=== PATIENT | male | born 1955 | race Caucasian/White ===

== ENCOUNTER → 2017-05-01 12:17 | Outpatient (CLI) | payer SELFPAY ==
[2017-05-01 13:29] LABS: Absolute Lymphocyte Count 2.21 X10^3/ul (0.83-4.51); Absolute Neutrophil Count 6.1 X10^3/uL (2.0-7.7); Basophil# 0.05 X10^3/uL; Basophil% 0.5 % (0-1); Eosinophil# 0.34 X10^3/uL; Eosinophils% 3.6 % (0-5); Hematocrit 39.4 % (40-54); Hemoglobin 13.1 g/dl (13.0-16.5); Lymphocyte # 2.21 X10^3/ul (4.0); Lymphocyte % 23.4 % (19-41); Mean Corp Hgb Conc 33.2 g/gl (32-36); Mean Corpuscular Hgb 31.6 pg (27.0-32.0); Mean Corpuscular Volume 95.2 fL (80-94); Mean Platelet Vol. 10.3 fl (6.2-12.0); Monocyte# 0.72 X10^3/uL; Monocyte% 7.6 % (0-10); Neutrophil # 6.07 X10^3/uL (2.7-7.7); Neutrophil % 64.5 % (47-70); Platelet Count 250 K/mm3 (150-450); RBC Distribution Width CV 13.5 % (11.6-14.6); RBC Distribution Width SD 45.4 fl (35.1-43.9); Red Blood Count 4.14 M/mm3 (4.6-6.2); White Blood Count 9.4 K/mm3 (4.4-11.0)
[2017-05-01 13:30] LABS: POSITIVE COUNT NO; POSITIVE DIFFERENTIAL NO; POSITIVE MORPHOLOGY NO
[2017-05-01 13:55] LABS: ALB/GLOB Ratio 1.2 RATIO (0.9-2.4); AST(SGOT) 40 U/L (15-37); Alanine Aminotransfer ALT/SGPT 53 U/L (16-61); Albumin, Serum 3.6 g/dL (3.2-5.0); Alkaline Phosphatase 167 U/L (45-117); Anion Gap 8 (5-15); BUN 19 mg/dL (7-18); BUN/Creat Ratio 22.2 RATIO (10-20); Calcium,Total 8.6 mg/dL (8.5-10.1); Chloride 102 mmol/L (98-107); Creatinine, Serum 0.86 mg/dL (0.70-1.30); EST Glomerular Filtration Rate 96 mL/min (>60); Est Glom Filt Rate - Afr Amer 116 mL/min (>60); Globulin 3.1 g/dL (2.2-4.2); Glucose 183 mg/dL (74-106); PSA,Total - Annual Screen 0.99 ng/mL (0.00-4.00); Potassium 4.3 mmol/L (3.5-5.1); Protein, Total 6.7 g/dL (6.4-8.2); Sodium Level 137 mmol/L (136-145); Thyroid Stim Hormone (TSH) 1.14 uIU/mL (0.358-3.74)
[2017-05-02 08:36] LABS: Hep C Antibodies 0.1 s/co ratio (0.0-0.9)
== END ==
PROVIDERS: Family Provider Family Medicine Geriatric Medicine; PCP Family Medicine Geriatric Medicine; Visit Provider Family Medicine Geriatric Medicine
DX: E11.9 Type 2 diabetes mellitus without complications (principal); I10 Essential (primary) hypertension; F52.8 Other sexual dysfunction not due to a substance or known physiological condition; Z12.5 Encounter for screening for malignant neoplasm of prostate; Z13.89 Encounter for screening for other disorder
CPT/HCPCS: 36415; 80053; 84153; 84403; 84443; 85025; 86803; G0103

== ENCOUNTER → 2018-04-21 10:54 | Outpatient (CLI) | payer OTHER, SELFPAY ==
[2018-04-21 12:50] LABS: Erythrocyte Sedimentation Rate 4 mm/hr (0-20)
[2018-04-21 12:52] LABS: Hematocrit 39.2 % (40-54); Hemoglobin 12.5 g/dl (13.0-16.5); Lymphocyte % 16.4 % (19-41); Mean Corp Hgb Conc 31.9 g/gl (32-36); Mean Platelet Vol. 10.4 fl (6.2-12.0); Neutrophil % 75.5 % (47-70); Platelet Count 213 K/mm3 (150-450); RBC Distribution Width CV 13.5 % (11.6-14.6); RBC Distribution Width SD 46.5 fl (35.1-43.9); Red Blood Count 4.17 M/mm3 (4.6-6.2); White Blood Count 15.6 K/mm3 (4.4-11.0)
[2018-04-21 12:53] LABS: Absolute Lymphocyte Count 2.55 X10^3/ul (0.83-4.51); Absolute Neutrophil Count 11.8 X10^3/uL (2.0-7.7); Basophil# 0.06 X10^3/uL; Basophil% 0.4 % (0-1); Eosinophil# 0.21 X10^3/uL; Eosinophils% 1.3 % (0-5); Lymphocyte # 2.55 X10^3/ul (4.0); Monocyte# 0.97 X10^3/uL; Monocyte% 6.2 % (0-10); Neutrophil # 11.76 X10^3/uL (2.7-7.7)
[2018-04-21 13:04] LABS: POSITIVE COUNT NO; POSITIVE DIFFERENTIAL NO; POSITIVE MORPHOLOGY NO
[2018-04-21 13:07] LABS: ALB/GLOB Ratio 1.1 RATIO (0.9-2.4); AST(SGOT) 25 U/L (15-37); Alanine Aminotransfer ALT/SGPT 45 U/L (16-61); Albumin, Serum 3.9 g/dL (3.2-5.0); Alkaline Phosphatase 135 U/L (45-117); Anion Gap 5 (5-15); BUN 17 mg/dL (7-18); BUN/Creat Ratio 15.9 RATIO (10-20); Calcium,Total 8.4 mg/dL (8.5-10.1); Chloride 101 mmol/L (98-107); Creatinine, Serum 1.07 mg/dL (0.70-1.30); EST Glomerular Filtration Rate 74 mL/min (>60); Est Glom Filt Rate - Afr Amer 90 mL/min (>60); Globulin 3.6 g/dL (2.2-4.2); Glucose 177 mg/dL (74-106); Potassium 4.4 mmol/L (3.5-5.1); Protein, Total 7.5 g/dL (6.4-8.2); Sodium Level 135 mmol/L (136-145); Thyroid Stim Hormone (TSH) 3.82 uIU/mL (0.358-3.74); Uric Acid 4.2 mg/dL (3.5-7.2)
== END ==
PROVIDERS: Family Provider Family Medicine Geriatric Medicine; PCP Family Medicine Geriatric Medicine; Visit Provider Family Medicine Geriatric Medicine
DX: M10.9 Gout, unspecified (principal); R53.83 Other fatigue
CPT/HCPCS: 36415; 80053; 84443; 84550; 85025; 85652; 86141

== ENCOUNTER → 2018-04-28 11:19 | Outpatient (CLI) | payer OTHER, SELFPAY ==
[2016-10-29 14:05] VITALS: BMI 28.2
--- NOTE | 2018-04-28 11:28 | RAD_ITS ---
STUDY: X-RAY - LEFT ELBOW REASON FOR EXAM: Male, 63 years old. Pain x1 month TECHNIQUE: 3 view(s) of the elbow. COMPARISON: None. FINDINGS: Normal visualized humerus, radius and ulna. Normal radiocapitellar and ulnotrochlear articulations. The soft tissue structures are unremarkable. RAD/Elbow 2 Views IMPRESSION: Normal x-ray examination of the elbow. Electronically Signed: Josue Fitzpatrick MD at 12:07 EDT , Service support ,
--- NOTE | 2018-04-28 11:40 | RAD_ITS ---
STUDY: X-RAY - RIGHT ELBOW REASON FOR EXAM: Male, 63 years old. Pain x1 month TECHNIQUE: 3 view(s) of the elbow. COMPARISON: None. FINDINGS: Normal visualized humerus, radius and ulna. Normal radiocapitellar and ulnotrochlear articulations. The soft tissue structures are unremarkable. RAD/Elbow 2 Views IMPRESSION: Normal x-ray examination of the elbow. Electronically Signed: Josue Fitzpatrick MD at 12:06 EDT , Service support ,
== END ==
PROVIDERS: Family Provider Family Medicine Geriatric Medicine; PCP Family Medicine Geriatric Medicine; Referring Provider Family Medicine Geriatric Medicine; Visit Provider Family Medicine Geriatric Medicine
DX: M25.521 Pain in right elbow (principal); M25.522 Pain in left elbow
CPT/HCPCS: 73070

== ENCOUNTER → 2018-05-19 12:57 | Outpatient (CLI) | payer OTHER, SELFPAY ==
[2016-10-29 14:05] VITALS: BMI 28.2
--- NOTE | 2018-05-19 13:00 | RAD_ITS ---
STUDY: X-RAY - RIGHT SHOULDER REASON FOR EXAM: Male, 63 years old. Pain TECHNIQUE: 4 view(s) of the shoulder. COMPARISON: None. FINDINGS: There is moderate degenerative arthrosis of the glenohumeral articulation. There is degenerative arthrosis of the acromioclavicular joint without inferior osseous spur formation. Normal acromion. Normal humeral head and visualized proximal humerus. The soft tissue structures are unremarkable. Normal visualized pulmonary apex. RAD/Shoulder min 2 Views IMPRESSION: Degenerative arthrosis Electronically Signed: Josue Fitzpatrick MD at 13:27 EDT , Service support ,
== END ==
PROVIDERS: Family Provider Family Medicine Geriatric Medicine; PCP Family Medicine Geriatric Medicine; Referring Provider Family Medicine Geriatric Medicine; Visit Provider Family Medicine Geriatric Medicine
DX: M25.511 Pain in right shoulder (principal)
CPT/HCPCS: 73030

== ENCOUNTER → 2019-06-29 11:30 | Outpatient (CLI) | payer OTHER, SELFPAY ==
[2016-10-29 14:05] VITALS: BMI 28.2
[2019-06-29 12:44] LABS: Absolute Lymphocyte Count 2.76 X10^3/uL (0.83-4.51); Absolute Neutrophil Count 8.1 X10^3/uL (2.0-7.7); Basophil% 0.8 % (0-1); Eosinophil# 0.63 X10^3/uL; Eosinophils% 5.2 % (0-5); Hematocrit 41.1 % (40-54); Hemoglobin 12.9 g/dL (13.0-16.5); Lymphocyte # 2.76 X10^3/ul (4.0); Lymphocyte % 22.8 % (19-41); Mean Corp Hgb Conc 31.4 g/dL (32-36); Mean Corpuscular Hgb 30.5 pg (27.0-32.0); Mean Corpuscular Volume 97.2 fL (80-94); Monocyte% 4.1 % (0-10); NRBC Flagged by Analyzer 0 % (0-5); Neutrophil # 8.06 X10^3/uL (2.7-7.7); Neutrophil % 66.7 % (47-70); Platelet Count 225 K/mm3 (150-450); RBC Distribution Width CV 13.1 % (11.6-14.6); RBC Distribution Width SD 46.5 fl (35.1-43.9); Red Blood Count 4.23 M/mm3 (4.6-6.2); White Blood Count 12.1 K/mm3 (4.4-11.0)
[2019-06-29 12:55] LABS: Vitamin D,25 Hydroxy 21.2 ng/mL
[2019-06-29 13:17] LABS: ALB/GLOB Ratio 1.1 RATIO (0.9-2.4); AST(SGOT) 23 U/L (15-37); Alanine Aminotransfer ALT/SGPT 37 U/L (16-61); Albumin, Serum 3.7 g/dL (3.2-5.0); Alkaline Phosphatase 112 U/L (45-117); Anion Gap 8 (5-15); BUN 25 mg/dL (7-18); BUN/Creat Ratio 22.1 RATIO (10-20); Calcium,Total 8.6 mg/dL (8.5-10.1); Chloride 102 mmol/L (98-107); Creatinine, Serum 1.13 mg/dL (0.70-1.30); EST Glomerular Filtration Rate 69 mL/min (>60); Est Glom Filt Rate - Afr Amer 84 mL/min (>60); Globulin 3.3 g/dL (2.2-4.2); Glucose 257 mg/dL (74-106); PSA,Total - Annual Screen 1.63 ng/mL (0.00-4.00); Potassium 4.7 mmol/L (3.5-5.1); Sodium Level 135 mmol/L (136-145); Thyroid Stim Hormone (TSH) 2.74 uIU/mL (0.358-3.74); Uric Acid 5.2 mg/dL (3.5-7.2)
--- OUTSIDE RECORDS SUMMARY | 2019-11-22 14:27 | XMS RPT_ITS | CCD ---
:1955 External Reference #:[id number] Author Organization [facility] Care Team Providers Name Role Phone Jax Lakhani Primary Care Provider Medications Medication Name Sig Date Prescriber Location Albuterol albuterol 2 MG/5ML [facility] Syrup Take 2 mg by (46201) mouth 3 times daily. 0 Active Betamethasone / clotrimazole-betametha [facility] Clotrimazole sone 1-0.05 % Cream (92588) Apply topically 2 times daily. 0 Active Calcitriol Calcitriol 3 MCG/GM [facility] Ointment Apply (85123) topically. 0 Active fluticasone / Fluticasone [facility] vilanterol Furoate-Vilanterol (74576) (BREO ELLIPTA) 100-25 MCG/INH Aerosol Powder, breath activated Inhale. 0 Active insulin, isophane insulin NPH 100 Historical Provider [facility] UNIT/ML Suspension (18446) Pen-injector injection Inject under the skin 2 times daily. 0 Active levothyroxine levothyroxine [facility] (SYNTHROID) 100 MCG (08705) Tab tablet Take 200 mcg by mouth daily. 2 tablets PO once daily 0 Active valsartan valsartan (DIOVAN) 320 [facility] MG Tab Take 320 mg by (88686 ) mouth daily. 0 Active Problems Category Problem Name Status Date Location Diabetes mellitus with Hyperglycemia due to Active 08-11-2018 - [employer] [facility] complications type 1 diabetes (28736) mellitus Diabetes mellitus Type 1 diabetes Active [facility] without complication mellitus without (00 000) complication Results Result Name Value Range Unit Interpretation Flag Date Location progress on 2019-02 PROGRESS HNO ID: [id number] Normal 02-22-[address] [facility] Author: Vlad Dunn ([id number]) Service: ? Author Type: MANAGER PRODUCT DESIGN Type: Progress Notes Filed: 02/22/2019 3:21 PM Note Text: ASSESSMENT/PLAN: 1. Type 2 diabetes mellitus without retinopathy (HCC) - ICD9 : 250.00, ICD10: E11.9 (primary diagnosis) -Patient education on the importance of strict blood sugar c ontrol in order to minimize the risk of ocular complications from Diab etes Mellitus. 2. Combined form of age-related cataract, both eyes - ICD9: 366.19, ICD10: H25.813 -Not visually significant / Observe 3. Vitreous floaters of both eyes - ICD9: 379.24, ICD10: H43 .393 -Patient was given both written and verbal information on fl ashes and floaters. Patient was instructed to call the office immediat he upon noticing flashes of light, increase in floaters, or changes in vision. Vlad Mahajan, OD I have confirmed and edited as necessary the relevant ophtha lmic history, review of systems, surgical history, and ophthalmological ex amination findings as obtained by the ophthalmic technical staff. I ropre ve seen and examined RAIZA Campbell. I have discussed the examination f indings, diagnosis, and treatment options with RAIZA Campbell and/or his family. I have also reviewed and agree with the assessment and plan as stated above and agree with all its relevant components. I gave the patient the opportunity to ask questions about the findings, diagnosis, and treatment options. Vital Signs Vital Sign Description Value / Unit Date Location The following section is limited to 5 en tries per type and includes entries from the following time range: 20180811 - 3. BMI (Body Mass Index) 29.18 kg/m2 08-11-2018 [employer] [facility] ([id number]) Body weight 94.89 kg 08-11-2018 [facility] () BP Diastolic 82 mm[Hg] 08-11-2018 [facility] ( 000) BP Systolic 141 mm[Hg] 08-11-2018 [facility] () Height 180.3 cm 08-11-2018 [facility] ( 000) Pulse (Heart Rate) 72 /min 08-11-2018 [facility] (00282) Encounters Date Type Reason Provider Location 08-11-2018 - Letter encounter Provider [facility] 08-11-2018 [facility] Provider Historical Provider 08-11-2018 - Office outpatient Type 1 diabetes Ramez Castillo [facility] 08-11-2018 new 45 minutes mellitus without Endocrino logy complication Comment: Type 1 diabetes mellitus wit hout complication (Primary Dx); Type 1 diabetes mellitus wit h hyperglycemia 08-11-2018 - 08-11-2018 Patient encounter Other Other [facility] Procedures Procedure Name Date Provider Location DEVICE EVALUATION 08-11-2018 Historical Provider [facility] ([id number]) Plan of Treatment Plan Description Date Location INFLUENZA VACCINE INFLUENZA VACCINE (#1) 2018 - [facility] (#1) 10-10-2018 [facility] ([id number]) Office Visit 09/14/2018 Office Visit 09-14-2018 - [facility] Endocrinology, Diabetes 09-14-2018 Endocrin ology & Metabolism Ramez Castillo MD [address] [place] [id number] [phone] C-PEPTIDE C-PEPTIDE Lab Routine 08-11-2018 - [facility] ([id number]) Type 1 diabetes mellitus 08-12-2019 without complication Expected: 08/11/2018 (Approximate), Expires: 08/12/2019 Comment: Expected: 08/11/2018 (Approx imate), Expires: 08/12/2019 CBC,PLATELETS CBC,PLATELETS Lab [facility]ine [facility]-11-2018 [facility][id number][facility] Type 1 diabetes mellitus without complication Expected: 08/11/2018, Expires: 08/12/2019 Comment: Expected: 08/11/2018, s: 08/12/2019 COMPREHENSIVE METABOLIC COMPREHENSIVE METABOLIC 08-11-2018 - [facility] PANEL PANEL Lab Routine Type 1 08-12-2019 (48033) diabetes mellitus without complication Expected: 08/11/2018, Expires: 08/12/2019 Comment: Expected: 08/11/2018, s: 08/12/2019 HEMOGLOBIN A1C HEMOGLOBIN A1C Lab Routine 08-11-2018 - 08-12-19 20 [facility] ([id number]) Type 1 diabetes mellitus without complication Expected: 08/11/2018, Expires: 08/12/2019 Comment: Expected: 08/11/2018, s: 08/12/2019 LIPID PANEL W LIPID PANEL W CALCULATED 08-11-2018 - [facility] CALCULATED LDL LDL Lab Routine Type 1 08-12-2019 (59116) diabetes mellitus without complication Expected: 08/11/2018, Expires: 08/12/2019 Comment: Expected: 08/11/2018, s: 08/12/2019 MICROALBUMIN/CREATININE RATIO MICROALBUMIN/CREATININE RATIO 07-0 - [facility] Fluids Routine Type 1 08-12-2019 (87583) diabetes mellitus without complication Expected: 08/11/2018, Expires: 08/12/2019 Comment: Expected: 08/11/2018, s: 08/12/2019 TSH W/FT4 REFLEX TSH W/FT4 REFLEX Lab 08-11-2018 - 08-12-2019 [facility] (89362) Routine Type 1 diabetes mellitus without complication Expected: 08/11/2018, Expires: 08/12/2019 Comment: Expected: 08/11/2018, s: 08/12/2019 Office Visit 08/11/2018 Office Visit 08-11-2018 - [facility] Endocrinology, Diabetes 08-11-2018 Endocrin ology & Metabolism Ramez Castillo MD [address] [place] [phone] COLON CANCER COLON CANCER SCREENING 2005 - [facility] SCREENING DISCUSSION DISCUSSION 2005 [facility] ([id number]) PROSTATE CANCER PROSTATE CANCER 2005 - [facility] SCREENING DISCUSSION SCREENING DISCUSSION 2005 [facility] ([id number]) [facility] (SHINGLES) [facility] (SHINGLES) 2005 - [facility] Rahman EDICAL VACCINE (1 of 2) VACCINE (1 of 2) 2005 [facility] ([id number]) LIPID SCREENING LIPID SCREENING 1995 - [facility] 1995 [facility] ([id number]) TDAP (ADULT) TDAP (ADULT) 1974 - [facility] 1974 [facility] ([id number]) TETANUS TETANUS 1973 - [facility] 1973 [facility] ([id number]) HIV SCREENING HIV SCREENING DISCUSSION 02-15-1968 - [facility] 01-06-1969 [facility] ([id number]) HEPATITIS C VIRUS HEPATITIS C VIRUS 1955 - [facility] MARIA ISABEL EDICAL SCREENING SCREENING 1955 [facility] ([id number]) TSH TSH 1955 - [facility] (00 000) 1955 C-PEPTIDE C-PEPTIDE Lab Routine [facility] ([id number]) Type 1 diabetes mellitus without complication Ordered: 08/11/2018 Comment: Ordered: 08/11/2018 CBC, EDIF, PLATELET CBC, EDIF, PLATELET Lab Routine Type 1 [facility] (79168) diabetes mellitus without complication Ordered: 08/11/2018 Comment: Ordered: 08/11/2018 COMPREHENSIVE METABOLIC PANEL COMPREHENSIVE METABOLIC PANEL [facility] ([id number]) Lab Routine Type 1 diabetes mellitus without complication Ordered: 08/11/2018 Comment: Ordered: 08/11/2018 HEMOGLOBIN A1C HEMOGLOBIN A1C Lab Routine Type 1 diabetes [facility] ([id number]) mellitus without complication Ordered: 08/11/2018 Comment: Ordered: 08/11/2018 LIPID PANEL W CALCULATED LDL LIPID PANEL W CALCULATED LDL Lab [facility] ([id number]) Routine Type 1 diabetes mellitus without complication Ordered: 08/11/2018 Comment: Ordered: 08/11/2018 MICROALBUMIN/CREATININE RATIO MICROALBUMIN/CREATININE RATIO [facility] Fluids Routine Type 1 diabetes ( 36498) mellitus without complication Ordered: 08/11/2018 Comment: Ordered: 08/11/2018 TSH TSH Lab Routine Type 1 diabetes mellitus without [facility] ([id number]) complication Ordered: 08/11/2018 Comment: Ordered: 08/11/2018 Payers Payer Name Policy Number Location MULTIPLAN xxxxxxxxxx [facility] ([id number]) The following information is from the original human readable contentNo Payer Records Found Social History Type Social History Date Location Description Tobacco smoking status Unknown if ever smoked [facility] ([id number]) Sex Assigned At Not on file [facility] ([id number]) Tobacco smoking status Never smoker 08-11-2018 - [facility] ([id number]) NHIS 08-11-2018 Alcohol Comment rarely 08-11-2018 - [facility] (00 000) 08-11-2018 The following information is from the original human readable contentNo Social History Records Found History of Present Illness Ramez Castillo MD - 08/11/2018 9:15 AM EDT History of Present Illness Type 1 diabetes: This is his first visit to the office. He was diagnosed with diabetes in his 20s. Currently taking NPH and R, he has a Canelo device and is making constant adjustments to his shoulders.Blood sugars are highly variable, it does appear he has hypoglycemic unawareness with blood sugars as low as 40 mg/dL, asymptomatic. Denies neuropathic discomfort of the lower extremity. Last ophthalmology appointment one year ago, no retinopathy. Review of Systems Vitals: Blood pressure 141/82, pulse 72, height 1.803 m (5' 11), weight 94.9 kg (209 lb 3.2 oz). Physical Exam Constitutional: He is oriented to person, place, and time. No distress. HENT: Head: Normocephalic. Cardiovascular: Normal rate, regular rhythm and normal heart sounds. Exam reveals no friction rub. No murmur heard. Pulmonary/Chest: Effort normal. He has no wheezes. He has no rales. Abdominal: Soft. Neurological: He is alert and oriented to person, place, and time. Skin: Skin is warm and dry. He is not diaphoretic. Psychiatric: Judgment normal. foot exam: +2 dorsalis pedis pulses bilaterally, intact monofilament sensation bilaterally, bunion on the right great toe joint Neurologic Exam Mental Status Oriented to person, place, and time. Assessment and Plan Type 1 diabetes: We discussed carbohydrate counting. We discussed insulin pumps. We will check C-peptide level. Have asked for him to document insulin administration and sugars were may come up with stable insulin doses and carb ratios. Follow-up in 2-4 weeks for lab results and to go over logbook andLibre download. rossSherrell rdz - 08/11/2018 9:15 AM EDT Nurse Note: Review of Systems Constitutional: Positive for unexpected weight change. Negative for fatigue. Respiratory: Positive for cough and shortness of breath. Cardiovascular: Negative for chest pain, palpitations and leg swelling. Gastrointestinal: Negative for constipation, diarrhea, nausea and vomiting. Endocrine: Negative for polydipsia and polyuria. Neurological: Negative for tremors, weakness and numbness. Psychiatric/Behavioral: Positive for sleep disturbance. The patient is nervous/anxious. Nursing Assessment: Physical Exam documented in this encounter Assessments Diagnosis Type 1 diabetes mellitus without complic ation - Primary Type I (juvenile type) diabetes mellitus without mention of complication, not stated as uncontrolled Type 1 diabetes mellitus with hyperglyce jl Type I (juvenile type) diabetes mellitus without mention of complication, not stated as uncontrolled Summary Purpose Family History No Family History Records Found Advance Directives No Advanced Directives Records Found Additional Source Comments FOR RECORDS PERTAINING TO PATIENTS WHO ARE OR HAVE BEEN ENROLLED IN A CHEMICAL DEPENDENCY/SUBSTANCE ABUSE PROGRAM, SOME INFORMATION MAY BE OMITTED. This clinical summary was aggregated from multiple sources. Caution should be exercised in using it in the provision of clinical care. This summary normalizes information from multiple sources, and as a consequence, information in this document may materially changethe coding, format and clinical context of patient data. In addition, data may be omittedin some cases. CLINICAL DECISIONS SHOULD BE BASED ON THE PRIMARY CLINICAL RECORDS. [facility] provides no warranty or guarantee of the accuracy or completeness of information in this document. UNRECOGNIZED CONTENT PROVIDED BELOW FOR UNRECOGNIZED SECTION Reason for Visit Reason Comments New Patient Diabetes UNRECOGNIZED CONTENT PROVIDED BELOW FOR UNRECOGNIZED SECTION No Status Records Found UNRECOGNIZED CONTENT PROVIDED BELOW FOR UNRECOGNIZED SECTION INFORMATION SOURCE DATE CREATED AUTHOR AUTHOR'S ORGANIZATIO N 02/22/2019 [facility] marisel
== END ==
PROVIDERS: PCP Family Medicine Geriatric Medicine; Visit Provider Family Medicine Geriatric Medicine
DX: I10 Essential (primary) hypertension (principal); E55.9 Vitamin D deficiency, unspecified; M10.9 Gout, unspecified; Z12.5 Encounter for screening for malignant neoplasm of prostate
CPT/HCPCS: 36415; 80053; 82306; 84153; 84443; 84550; 85025; G0103

== ENCOUNTER 2019-07-11 07:38 | Emergency (ER) | payer OTHER, SELFPAY ==
[2019-07-11 07:40] VITALS: BP 139/75; PULSE 96; RESP 17; TEMP 36.1; O2SAT 93; BMI 26.4
[2019-07-11 07:42] VITALS: BP 139/75; PULSE 96; RESP 17; TEMP 36.1; O2SAT 93
--- NOTE | 2019-07-11 07:51 | RAD_ITS ---
STUDY: X-RAY - RIGHT HAND REASON FOR EXAM: Male, 64 years old. Right hand pain, redness and edema -- most edema around MC area, fingers are swollen too -- NKI, redness and pain started 07-06-, getting worse TECHNIQUE: 3 view(s) of the hand. COMPARISON: None. FINDINGS: Normal radiocarpal articulation. Normal distal radioulnar joint. Normal visualized carpal bones. Normal carpal articulations Normal carpometacarpal articulation of the thumb. Normal second through fifth carpometacarpal joints. Normal metacarpi. Normal metacarpophalangeal joint of the thumb. Normal interphalangeal joint of the thumb. Normal proximal and distal phalanges of the thumb. Normal metacarpophalangeal joints of the second through fifth fingers. Normal proximal and distal interphalangeal joints of the second through fifth fingers. Normal phalanges of the second through fifth fingers. Soft tissue swelling. Vascular calcification overlying the wrist joint. RAD/Hand Min 3 Views IMPRESSION: Soft tissue swelling. Vascular calcification. Electronically Signed: Piter Paz, at 8:43 EDT , Service support ,
--- NOTE | 2019-07-11 07:58 | ED.DCSUM_ITS ---
History of Present Illness Chief Complaint: Upper Extremity Injury Narrative: This patient is a 64-year-old male who presents with pain redness and swelling of his right hand. He first noticed this on Thursday, 4 days ago. He does not recall a specific injury but notes that he may have been bitten by something. He noted a small wound near his fifth digit. Since that time his redness swelling and pain have progressed. He is diabetic. No fevers nausea or vomiting. He denies any systemic complaints. Past Medical History - Allergies and Home Meds Allergies/Adverse Reactions: Allergies No Known Allergies Allergy (Verified 07/11/19 07:40) Primary Care Physician: Michael Lakhani Chi, MD [Primary Care Provider] - Past Medical History: - - Diabetes, hypertension, hypothyroidism Smoking Status: Former smoker Review of Systems All systems negative except as indicated General: Denies: Fever Eyes: Denies: Visual changes - bilaterally ENT: Denies: Bilateral ear pain Cardiovascular: Denies: Chest pain Respiratory: Denies: Dyspnea Gastrointestinal: Denies: Nausea, Vomiting Musculoskeletal: Reports: Extremity Pain Skin: Reports: Rash Neurological: Denies: Headache Allergy: Denies: Uticaria Physical Exam Vital Signs/Narrative: Vital Signs Temp Pulse Resp BP Pulse Ox 07/11/19 07:42 96.9 F L 96 17 139/75 H 93 07/11/19 07:40 96.9 F L 96 17 139/75 H 93 Inital Vital Signs reviewed: Yes General: Well nourished Head: Normocephalic Eyes: EOMI ENT: Moist mucous membranes Neck: Supple Cardiovascular: Regular rate, Regular rhythm Respiratory: No distress, CTA bilaterally Abdomen: Soft Extremities: - - Patient has erythema, warmth to the touch, significant soft tissue swelling of the right hand extending up onto the distal forearm there is no lymphangitic streaking he has brisk capillary refill no necrosis or ulceration good range of motion of the digits and wrist without significant pain no fluctuance or drainage Skin: Normal color Neurological: Alert Psychological: Normal affect Diagnostic/Tx/Re-eval Impressions Hand X-Ray 07/11/19 07:51 IMPRESSION: Soft tissue swelling. Vascular calcification. Electronically Signed: Piter Paz, at 8:43 EDT , Service support , 07/11/19 07:51 Hand Min 3 Views [RAD] Stat Laboratory Results 07/11/19 07/11/19 07:40 07:40 WBC 17.0 H RBC 4.37 L Hgb 13.2 Hct 42.5 MCV 97.3 H MCH 30.2 MCHC 31.1 L RDW Std Deviation 46.4 H RDW Coeff of Eleonora 12.8 Plt Count 216 MPV 9.9 Immature Gran % (Auto) 0.400 Neut % (Auto) 76.3 H Lymph % (Auto) 13.1 L Sampson % (Auto) 7.0 Eos % (Auto) 2.8 Baso % (Auto) 0.4 Absolute Neuts (auto) 13.0 H Absolute Lymphs (auto) 2.23 Nucleated RBC % 0 Sodium 135 L Potassium 3.6 Chloride 101 Carbon Dioxide 28.0 Anion Gap 6 BUN 15 Creatinine 1.07 Estim Creat Clear Calc 74.28 Est GFR (MDRD) Af Amer 89 Est GFR (MDRD) Non-Af 74 BUN/Creatinine Ratio 14.0 Glucose 301 H Calcium 8.6 - Medical Decision Making Patient was treated with IV Unasyn. Laboratory studies as above notable for white blood cell count 17,000. Given the extent of his cellulitis, leukocytosis, the fact he is diabetic I did recommend hospitalization for IV antibiotics. Patient refuses. We did discuss risks and benefits of hospitalization versus outpatient management including the risk of worsening of condition or sepsis should he leave AGAINST MEDICAL ADVICE. He vocalized understanding and elected to sign out AGAINST MEDICAL ADVICE. He does understand he is welcome to return and certainly should do so for any new or worsening symptoms. Additionally I spoke to his primary care physician who can reevaluate him in the office tomorrow. We will also start the patient on oral antibiotics. He was given a prescription for Augmentin. ED Disposition - Plan for ED Patient: Disposition: Home or Assisted Living Diagnosis: Cellulitis of hand Instructions: ED Cellulitis Prescriptions: Amox/Clavulanate Tablet [Augmentin Tablet] 875 mg PO Q12H #20 tab Prescription Printed Referrals: Michael Lakhani Chi, MD [Primary Care Provider] -
[2019-07-11 08:20] LABS: Absolute Lymphocyte Count 2.23 X10^3/uL (0.83-4.51); Basophil# 0.07 X10^3/uL; Basophil% 0.4 % (0-1); Eosinophil# 0.48 X10^3/uL; Eosinophils% 2.8 % (0-5); Hematocrit 42.5 % (40-54); Hemoglobin 13.2 g/dL (13.0-16.5); Lymphocyte # 2.23 X10^3/ul (4.0); Lymphocyte % 13.1 % (19-41); Mean Corp Hgb Conc 31.1 g/dL (32-36); Mean Corpuscular Hgb 30.2 pg (27.0-32.0); Mean Corpuscular Volume 97.3 fL (80-94); Mean Platelet Vol. 9.9 fl (6.2-12.0); Monocyte# 1.19 X10^3/uL; NRBC Flagged by Analyzer 0 % (0-5); Neutrophil # 13.01 X10^3/uL (2.7-7.7); Neutrophil % 76.3 % (47-70); Platelet Count 216 K/mm3 (150-450); RBC Distribution Width CV 12.8 % (11.6-14.6); RBC Distribution Width SD 46.4 fl (35.1-43.9); Red Blood Count 4.37 M/mm3 (4.6-6.2)
[2019-07-11 08:34] LABS: Anion Gap 6 (5-15); BUN 15 mg/dL (7-18); Calcium,Total 8.6 mg/dL (8.5-10.1); Chloride 101 mmol/L (98-107); Creatinine, Serum 1.07 mg/dL (0.70-1.30); EST Glomerular Filtration Rate 74 mL/min (>60); Est Glom Filt Rate - Afr Amer 89 mL/min (>60); Estimated Creatinine Clearance 74.28 ml/min; Glucose 301 mg/dL (74-106); Potassium 3.6 mmol/L (3.5-5.1); Sodium Level 135 mmol/L (136-145)
[2019-07-11 08:41] VITALS: BP 147/73; PULSE 66; RESP 16; TEMP 36.5; O2SAT 95
--- OUTSIDE RECORDS SUMMARY | 2019-11-27 05:32 | XMS RPT_ITS | CCD ---
:1955 External Reference #:[id number] Author Organization [employer] Care Team Providers Name Role Phone Jax Lakhani Primary Care Provider Medications Medication Name Sig Date Prescriber Location Albuterol albuterol 2 MG/5ML [facility] Syrup Take 2 mg by (07849) mouth 3 times daily. 0 Active Betamethasone / clotrimazole-betametha [facility] Clotrimazole sone 1-0.05 % Cream (89913) Apply topically 2 times daily. 0 Active Calcitriol Calcitriol 3 MCG/GM [facility] Ointment Apply (46943) topically. 0 Active fluticasone / Fluticasone [facility] vilanterol Furoate-Vilanterol (72386) (BREO ELLIPTA) 100-25 MCG/INH Aerosol Powder, breath activated Inhale. 0 Active insulin, isophane insulin NPH 100 Historical Provider [facility] UNIT/ML Suspension (52375) Pen-injector injection Inject under the skin 2 times daily. 0 Active levothyroxine levothyroxine [facility] (SYNTHROID) 100 MCG (60091) Tab tablet Take 200 mcg by mouth daily. 2 tablets PO once daily 0 Active valsartan valsartan (DIOVAN) 320 [facility] MG Tab Take 320 mg by (05445 ) mouth daily. 0 Active Problems Category Problem Name Status Date Location Diabetes mellitus with Hyperglycemia due to Active 08-11-2018 - [facility] complications type 1 diabetes (16175) mellitus Diabetes mellitus Type 1 diabetes Active [facility] without complication mellitus without (00 000) complication Results Result Name Value Range Unit Interpretation Flag Date Location progress on 2019-02 PROGRESS HNO ID: [id number] Normal 02-22-2019 [facility] Author: Vlad Dunn ([id number]) Service: ? Author Type: CLAIMS VICE PRESIDENT Type: Progress Notes Filed: 02/22/2019 3:21 PM [...] obtained by the ophthalmic technical staff. I roper ve seen and examined RAIZA Campbell. I [...] BMI (Body Mass Index) 29.18 kg/m2 08-11-2018 [facility] ([id number]) Body weight 94.89 kg 08-11-2018 [facility] () BP Diastolic 82 mm[Hg] 08-11-2018 [facility] ( 000) BP Systolic 141 mm[Hg] 08-11-2018 [facility] () Height 180.3 cm 08-11-2018 [facility] ( 000) Pulse (Heart Rate) 72 /min 08-11-2018 [facility] (62775) Encounters Date Type Reason Provider Location 08-11-2018 - Letter encounter Provider [facility] 08-11-2018 [facility] Provider Historical Provider 08-11-2018 - Office outpatient Type 1 diabetes Ramez Castillo [facility] 08-11-2018 new 45 minutes mellitus without Endocrino logy complication Comment: Type 1 diabetes mellitus wit hout complication (Primary Dx); Type 1 diabetes mellitus wit h hyperglycemia 08-11-2018 - 08-11-2018 Patient encounter Other Other [facility] Procedures Procedure Name Date Provider Location DEVICE EVALUATION 08-11-2018 Historical Provider [facility] ([id number]) Plan of Treatment Plan Description Date Location INFLUENZA VACCINE INFLUENZA VACCINE (#1) 2018 - [facility] (#1) 10-10-2018 [facility] ([id number]) Office Visit 09/14/2018 Office Visit 09-14-2018 - [facility] Endocrinology, Diabetes 09-14-2018 Endocrin ology & Metabolism Ramez Castillo MD [address] [place] [address] [phone] C-PEPTIDE C-PEPTIDE Lab Routine 08-11-2018 - [facility] ([id number]) Type 1 diabetes mellitus 08-12-2019 without complication Expected: 08/11/2018 (Approximate), Expires: 08/12/2019 Comment: Expected: 08/11/2018 (Approx imate), Expires: 08/12/2019 CBC,PLATELETS CBC,PLATELETS Lab Routine 08-11-2018 [facility] (89130[facility] Type 1 diabetes mellitus without complication Expected: 08/11/2018, Expires: 08/12/2019 Comment: Expected: 08/11/2018, s: 08/12/2019 COMPREHENSIVE METABOLIC COMPREHENSIVE METABOLIC 08-11-2018 - [facility] PANEL PANEL Lab Routine Type 1 08-12-2019 (13371) diabetes mellitus without complication Expected: 08/11/2018, Expires: 08/12/2019 Comment: Expected: 08/11/2018, s: 08/12/2019 HEMOGLOBIN A1C HEMOGLOBIN A1C Lab Routine 08-11-2018 - 08-12-19 20 [facility] (73948) Type 1 diabetes mellitus without complication Expected: 08/11/2018, Expires: 08/12/2019 Comment: Expected: 08/11/2018, s: 08/12/2019 LIPID PANEL W LIPID PANEL W CALCULATED 08-11-2018 - [facility] CALCULATED LDL LDL Lab Routine Type 1 08-12-2019 (28013) diabetes mellitus without complication Expected: 08/11/2018, Expires: 08/12/2019 Comment: Expected: 08/11/2018, s: 08/12/2019 MICROALBUMIN/CREATININE RATIO MICROALBUMIN/CREATININE RATIO 07-0 - [facility] Fluids Routine Type 1 08-12-2019 (60254) diabetes mellitus without complication Expected: 08/11/2018, Expires: 08/12/2019 Comment: Expected: 08/11/2018, s: 08/12/2019 TSH W/FT4 REFLEX TSH W/FT4 REFLEX Lab 08-11-2018 - 08-12-2019 [facility] (81231) Routine Type 1 diabetes mellitus without complication Expected: 08/11/2018, Expires: 08/12/2019 Comment: Expected: 08/11/2018, s: 08/12/2019 Office Visit 08/11/2018 Office Visit 08-11-2018 - [facility], Diabetes 08-11-2018 Endocrin ology & Metabolism Ramez Castillo MD [address] [place] [address] [phone] COLON CANCER COLON CANCER SCREENING 2005 - [facility] MEDICAL SCREENING DISCUSSION DISCUSSION 2005 [facility] [place] (432 10) PROSTATE CANCER PROSTATE CANCER 2005 - [facility] SCREENING DISCUSSION SCREENING DISCUSSION 2005 [facility] [place] (32997) ZOSTER (SHINGLES) ZOSTER (SHINGLES) 2005 - [facility] Rahman EDICAL VACCINE (1 of 2) VACCINE (1 of 2) 2005 [facility] [place] (54832) LIPID SCREENING LIPID SCREENING 1995 - [facility] 1995 [place] (21389) TDAP (ADULT) TDAP (ADULT) 1974 - [facility] 1974 [facility] [place] (62256) TETANUS TETANUS 1973 - [facility] 1973 [place] [place] (54614) HIV SCREENING HIV SCREENING DISCUSSION 02-15-1968 - [facility] 01-06-1969 [facility] ([id number]) HEPATITIS C VIRUS HEPATITIS C VIRUS 1955 - [facility] MARIA ISABEL EDICAL SCREENING SCREENING 1955 [facility] ([id number]) TSH TSH 1955 - [facility] (00 000) 1955 C-PEPTIDE C-PEPTIDE Lab Routine [facility] (80773) Type 1 diabetes mellitus without complication Ordered: 08/11/2018 Comment: Ordered: 08/11/2018 CBC, EDIF, PLATELET CBC, EDIF, PLATELET Lab Routine Type 1 [facility] (07464) diabetes mellitus without complication Ordered: 08/11/2018 Comment: Ordered: 08/11/2018 COMPREHENSIVE METABOLIC PANEL COMPREHENSIVE METABOLIC PANEL [facility] (71633) Lab Routine Type 1 diabetes mellitus without complication Ordered: 08/11/2018 Comment: Ordered: 08/11/2018 HEMOGLOBIN A1C HEMOGLOBIN A1C Lab Routine Type [address] [facility] (69564) mellitus without complication Ordered: 08/11/2018 Comment: Ordered: 08/11/2018 LIPID PANEL W CALCULATED LDL LIPID PANEL W CALCULATED LDL Lab [facility] (27254) Routine Type 1 diabetes mellitus without complication Ordered: 08/11/2018 Comment: Ordered: 08/11/2018 MICROALBUMIN/CREATININE RATIO MICROALB[facility]IN[facility]INE RATIO [facility] Flu[facility] Routine Type 1 diabetes ( 03595) mellitus without complication Ordered: 08/11/2018 Comment: Ordered: 08/11/2018 TSH TSH Lab Routine Type 1 diabetes mellitus without [facility] (59824) complication Ordered: 08/11/2018 Comment: Ordered: 08/11/2018 Payers Payer Name Policy Number Location MULTIPLAN xxxxxxxxxx [facility] ([id number]) The following information is from the original human readable contentNo Payer Records Found Social History Type Social History Date Location Description Tobacco smoking status Unknown if ever smoked [facility] ([id number]) Sex Assigned At Not on file [facility] ([id number]) Tobacco smoking status Never smoker 08-11-2018 [facility] (36909) NHIS 08-11-2018 Alcohol Comment rarely 08-11-2018 - [facility] (00 000) 08-11-2018 The following information [...] BE BASED ON THE PRIMARY CLINICAL RECORDS. [facility] provides no warranty or guarantee of the accuracy or completeness of information in this document. UNRECOGNIZED CONTENT PROVIDED BELOW FOR UNRECOGNIZED SECTION Reason for Visit Reason Comments New Patient Diabetes UNRECOGNIZED CONTENT PROVIDED BELOW FOR UNRECOGNIZED SECTION No Status Records Found UNRECOGNIZED CONTENT PROVIDED BELOW FOR UNRECOGNIZED SECTION INFORMATION SOURCE DATE CREATED AUTHOR AUTHOR'S ORGANIZATIO N 02/22/2019 [facility] marisel
--- OUTSIDE RECORDS SUMMARY | 2019-11-27 05:35 | XMS RPT_ITS | CCD ---
:1955 External Reference #:[id number] Author Organization [employer] Care Team Providers Name Role Phone Jax Lakhani Primary Care Provider Medications Medication Name Sig Date Prescriber Location Albuterol albuterol 2 MG/5ML [facility] Syrup Take 2 mg by (29763) mouth 3 times daily. 0 Active Betamethasone / clotrimazole-betametha [facility] Clotrimazole sone 1-0.05 % Cream (90060) Apply topically 2 times daily. 0 Active Calcitriol Calcitriol 3 MCG/GM [facility] Ointment Apply (72163) topically. 0 Active fluticasone / Fluticasone [facility] vilanterol Furoate-Vilanterol (75407) (BREO ELLIPTA) 100-25 MCG/INH Aerosol Powder, breath activated Inhale. 0 Active insulin, isophane insulin NPH 100 Historical Provider [facility] UNIT/ML Suspension (44906) Pen-injector injection Inject under the skin 2 times daily. 0 Active levothyroxine levothyroxine [facility] (SYNTHROID) 100 MCG (43945) Tab tablet Take 200 mcg by mouth daily. 2 tablets PO once daily 0 Active valsartan valsartan (DIOVAN) 320 [facility] MG Tab Take 320 mg by (55107 ) mouth daily. 0 Active Problems Category Problem Name Status Date Location Diabetes mellitus with Hyperglycemia due to Active 08-11-2018 - [facility] complications type 1 diabetes (82875) mellitus Diabetes mellitus Type 1 diabetes Active [facility] without complication mellitus without (00 000) complication Results Result Name Value Range Unit Interpretation Flag Date Location progress on 2019-02 PROGRESS HNO ID: [id number] Normal 02-22-2019 [facility] Author: Vlad Dunn ([id number]) Service: ? Author Type: RIBBON CLEANER Type: Progress Notes Filed: 02/22/2019 3:21 PM [...] BMI (Body Mass Index) 29.18 kg/m2 08-11-2018 [facility] (54332) Body weight 94.89 kg 08-11-2018 [facility] () BP Diastolic 82 mm[Hg] 08-11-2018 [facility] ( 000) BP Systolic 141 mm[Hg] 08-11-2018 [facility] () Height 180.3 cm 08-11-2018 [facility] ( 000) Pulse (Heart Rate) 72 /min 08-11-2018 [facility] (19413) Encounters Date Type Reason Provider Location 08-11-2018 - Letter encounter Provider [facility] 08-11-2018 [facility] Provider Historical Provider 08-11-2018 - Office outpatient Type 1 diabetes Ramez Castillo [facility] 08-11-2018 new 45 minutes mellitus without Endocrino logy complication Comment: Type 1 diabetes mellitus wit hout complication (Primary Dx); Type 1 diabetes mellitus wit h hyperglycemia 08-11-2018 - 08-11-2018 Patient encounter Other Other [facility] Procedures Procedure Name Date Provider Location DEVICE EVALUATION 08-11-2018 Historical Provider [facility] ([id number]) Plan of Treatment Plan Description Date Location INFLUENZA VACCINE INFLUENZA VACCINE (#1) 2018 - [facility] (#1) 10-10-2018 [facility] ([id number]) Office Visit 09/14/2018 Office Visit 09-14-2018 - [facility] Endocrinology, Diabetes 09-14-2018 Endocrin ology & Metabolism Ramez Castillo MD [address] [place] [address] [phone] C-PEPTIDE C-PEPTIDE Lab Routine 08-11-2018 - [facility] ([id number]) Type 1 diabetes mellitus 08-12-2019 without complication Expected: 08/11/2018 (Approximate), Expires: 08/12/2019 Comment: Expected: 08/11/2018 (Approx imate), Expires: 08/12/2019 CBC,PLATELETS CBC,PLATELETS Lab Routine 08-11-2018 - [facility] (63317[facility] Type 1 diabetes mellitus without complication Expected: 08/11/2018, Expires: 08/12/2019 Comment: Expected: 08/11/2018, s: 08/12/2019 COMPREHENSIVE METABOLIC COMPREHENSIVE METABOLIC 08-11-2018 - [facility] PANEL PANEL Lab Routine Type 1 08-12-2019 (63132) diabetes mellitus without complication Expected: 08/11/2018, Expires: 08/12/2019 Comment: Expected: 08/11/2018, s: 08/12/2019 HEMOGLOBIN A1C HEMOGLOBIN A1C Lab Routine 08-11-2018 - 08-12-19 20 [facility] (21520) Type 1 diabetes mellitus without complication Expected: 08/11/2018, Expires: 08/12/2019 Comment: Expected: 08/11/2018, s: 08/12/2019 LIPID PANEL W LIPID PANEL W CALCULATED 08-11-2018 - [facility] CALCULATED LDL LDL Lab Routine Type 1 08-12-2019 (17329) diabetes mellitus without complication Expected: 08/11/2018, Expires: 08/12/2019 Comment: Expected: 08/11/2018, s: 08/12/2019 MICROALBUMIN/CREATININE RATIO MICROALBUMIN/CREATININE RATIO 07-0 - [facility] Fluids Routine Type 1 08-12-2019 (49974) diabetes mellitus without complication Expected: 08/11/2018, Expires: 08/12/2019 Comment: Expected: 08/11/2018, s: 08/12/2019 TSH W/FT4 REFLEX TSH W/FT4 REFLEX Lab 08-11-2018 - 08-12-2019 [facility] (63934) Routine Type 1 diabetes mellitus without complication Expected: 08/11/2018, Expires: 08/12/2019 Comment: Expected: 08/11/2018, s: 08/12/2019 Office Visit 08/11/2018 Office Visit 08-11-2018 - [facility] Endocrin[facility], Diabetes 08-11-2018 Endocrin ology & Metabolism Ramez Castillo MD [address] [place] [address] [phone] COLON CANCER COLON CANCER SCREENING 2005 - [facility] MEDICAL SCREENING DISCUSSION DISCUSSION 2005 [place] (432 10) PROSTATE CANCER PROSTATE CANCER 2005 - [facility] SCREENING DISCUSSION SCREENING DISCUSSION 2005 [facility] (73250) ZOSTER (SHINGLES) ZOSTER (SHINGLES) 2005 - [facility]man EDICAL VACCINE (1 of 2) VACCINE (1 of 2) 2005 [place] (37821) LIPID SCREENING LIPID SCREENING 1995 - [facility] 1995 [place] (63918) TDAP (ADULT) TDAP (ADULT) 1974 - [facility] 1974 [place] (32176) TETANUS TETANUS 1973 - [facility] 1973 [place] (52177) HIV SCREENING HIV SCREENING DISCUSSION 02-15-1968 - [facility] DIS[facility] 01-06-1969 [facility] (06172) HEPATITIS C VIRUS HEPATITIS C VIRUS 1955 - [facility] MARIA ISABEL EDICAL SCREENING SCREENING 1955 [facility] (38322) TSH TSH 1955 - [facility] (00 000) 1955 C-PEPTIDE C-PEPTIDE Lab Routine [facility] (06224) Type 1 diabetes mellitus without complication Ordered: 08/11/2018 Comment: Ordered: 08/11/2018 CBC, EDIF, PLATELET CBC, EDIF, PLATELET Lab Routine Type 1 [facility] (45200) diabetes mellitus without complication Ordered: 08/11/2018 Comment: Ordered: 08/11/2018 COMPREHENSIVE METABOLIC PANEL COMPREHENSIVE METABOLIC PANEL [facility] (50230) Lab Routine Type 1 diabetes mellitus without complication Ordered: 08/11/2018 Comment: Ordered: 08/11/2018 HEMOGLOBIN A1C HEMOGLOBIN A1C Lab Routine Type 1 diabetes [facility] (16364) mellitus without complication Ordered: 08/11/2018 Comment: Ordered: 08/11/2018 LIPID PANEL W CALCULATED LDL LIPID PANEL W CALCULATED LDL Lab [facility] (88502) Routine Type 1 diabetes mellitus without complication Ordered: 08/11/2018 Comment: Ordered: 08/11/2018 MICROALBUMIN/CREATININE RATIO MICROALB[facility]IN[facility]INE [facility]IO [facility] Fluids Routine Type 1 diabetes ( 73045) mellitus without complication Ordered: 08/11/2018 Comment: Ordered: 08/11/2018 TSH TSH Lab Routine Type 1 diabetes mellitus [facility] (11098) complication Ordered: 08/11/2018 Comment: Ordered: 08/11/2018 Payers Payer Name Policy Number Location MULTIPLAN xxxxxxxxxx [facility] ([id number]) The following information is from the original human readable contentNo Payer Records Found Social History Type Social History Date Location Description Tobacco smoking status Unknown if ever smoked [facility] (87942) Sex Assigned At Not on file [facility] (51021) Tobacco smoking status Never [facility]oker [facility]-11-2018 [facility] (31247[facility] NHIS 08-11-2018 Alcohol Comment rarely 08-11-2018 - [facility] (00 000) 08-11-2018 The following information [...] BE BASED ON THE PRIMARY CLINICAL RECORDS. [facility] provides no warranty or guarantee of the accuracy or completeness of information in this document. UNRECOGNIZED CONTENT PROVIDED BELOW FOR UNRECOGNIZED SECTION Reason for Visit Reason Comments New Patient Diabetes UNRECOGNIZED CONTENT PROVIDED BELOW FOR UNRECOGNIZED SECTION No Status Records Found UNRECOGNIZED CONTENT PROVIDED BELOW FOR UNRECOGNIZED SECTION INFORMATION SOURCE DATE CREATED AUTHOR AUTHOR'S ORGANIZATIO N 02/22/2019 [facility] marisel
== END 2019-07-11 09:51 | disposition home or self-care (01) ==
PROVIDERS: Emergency Provider Emergency Medicine; PCP Family Medicine Geriatric Medicine
DX: L03.113 Cellulitis of right upper limb (principal); I10 Essential (primary) hypertension; E11.9 Type 2 diabetes mellitus without complications; E03.9 Hypothyroidism, unspecified; Z79.4 Long term (current) use of insulin; Z79.899 Other long term (current) drug therapy; Z87.891 Personal history of nicotine dependence; Z53.29 Procedure and treatment not carried out because of patient's decision for other reasons
CPT/HCPCS: 73130; 80048; 85025; 96365; 96366; 99283; J7050; A4216; J0295

== ENCOUNTER → 2020-03-28 11:21 | Outpatient (CLI) | payer OTHER, SELFPAY ==
[2020-03-28 12:58] LABS: Absolute Lymphocyte Count 2.97 X10^3/uL (0.83-4.51); Absolute Neutrophil Count 7.1 X10^3/uL (2.0-7.7); Basophil# 0.12 X10^3/uL; Basophil% 1.1 % (0-1); Eosinophil# 0.36 X10^3/uL; Eosinophils% 3.2 % (0-5); Hematocrit 43.3 % (40-54); Hemoglobin 13.5 g/dL (13.0-16.5); Lymphocyte # 2.97 X10^3/ul (4.0); Lymphocyte % 26.7 % (19-41); Mean Corp Hgb Conc 31.2 g/dL (32-36); Mean Corpuscular Hgb 30.3 pg (27.0-32.0); Mean Corpuscular Volume 97.1 fL (80-94); Mean Platelet Vol. 9.8 fl (6.2-12.0); Monocyte# 0.56 X10^3/uL; NRBC Flagged by Analyzer 0 % (0-5); Neutrophil # 7.05 X10^3/uL (2.7-7.7); Neutrophil % 63.5 % (47-70); Platelet Count 271 K/mm3 (150-450); RBC Distribution Width CV 13.2 % (11.6-14.6); RBC Distribution Width SD 46.8 fl (35.1-43.9); Red Blood Count 4.46 M/mm3 (4.6-6.2); White Blood Count 11.1 K/mm3 (4.4-11.0)
[2020-03-28 13:46] LABS: ALB/GLOB Ratio 1.2 RATIO (0.9-2.4); AST(SGOT) 25 U/L (15-37); Alanine Aminotransfer ALT/SGPT 43 U/L (16-61); Albumin, Serum 4.1 g/dL (3.2-5.0); Alkaline Phosphatase 104 U/L (45-117); Anion Gap 6 (5-15); BUN 29 mg/dL (7-18); Calcium,Total 8.7 mg/dL (8.5-10.1); Chloride 102 mmol/L (98-107); Creatinine, Serum 0.97 mg/dL (0.70-1.30); EST Glomerular Filtration Rate 83 mL/min (>60); Est Glom Filt Rate - Afr Amer 100 mL/min (>60); Globulin 3.3 g/dL (2.2-4.2); Glucose 141 mg/dL (74-106); Protein, Total 7.4 g/dL (6.4-8.2); Sodium Level 135 mmol/L (136-145); Thyroid Stim Hormone (TSH) 2.64 uIU/mL (0.358-3.74)
[2020-03-28 14:56] LABS: Vitamin D,25 Hydroxy 14.7 ng/mL
== END ==
PROVIDERS: PCP Family Medicine Geriatric Medicine; Visit Provider Family Medicine Geriatric Medicine
DX: E11.9 Type 2 diabetes mellitus without complications (principal); E55.9 Vitamin D deficiency, unspecified; F52.8 Other sexual dysfunction not due to a substance or known physiological condition; I10 Essential (primary) hypertension
CPT/HCPCS: 36415; 80053; 82306; 84403; 84443; 85025

== ENCOUNTER → 2020-07-30 13:45 | Outpatient (CLI) | payer MEDICARE, SELFPAY ==
[2020-07-30 17:18] LABS: Absolute Lymphocyte Count 2.42 X10^3/uL (0.83-4.51); Absolute Neutrophil Count 6.8 X10^3/uL (2.0-7.7); Basophil# 0.08 X10^3/uL; Basophil% 0.8 % (0-1); Eosinophil# 0.61 X10^3/uL; Eosinophils% 5.8 % (0-5); Hematocrit 39.8 % (40-54); Hemoglobin 12.5 g/dL (13.0-16.5); Lymphocyte # 2.42 X10^3/ul (0.83-4.51); Mean Corp Hgb Conc 31.4 g/dL (32-36); Mean Corpuscular Hgb 30.9 pg (27.0-32.0); Mean Corpuscular Volume 98.3 fL (80-94); Mean Platelet Vol. 10.4 fl (6.2-12.0); Monocyte# 0.55 X10^3/uL; Monocyte% 5.2 % (0-10); NRBC Flagged by Analyzer 0 % (0-5); Neutrophil # 6.82 X10^3/uL (2.7-7.7); Neutrophil % 64.8 % (47-70); Platelet Count 226 K/mm3 (150-450); RBC Distribution Width CV 13.1 % (11.6-14.6); RBC Distribution Width SD 46.6 fl (35.1-43.9); Red Blood Count 4.05 M/mm3 (4.6-6.2); White Blood Count 10.5 K/mm3 (4.4-11.0)
[2020-07-30 17:32] LABS: ALB/GLOB Ratio 1.1 RATIO (0.9-2.4); AST(SGOT) 26 U/L (15-37); Alanine Aminotransfer ALT/SGPT 43 U/L (16-61); Albumin, Serum 3.5 g/dL (3.2-5.0); Alkaline Phosphatase 131 U/L (45-117); Anion Gap 8 (5-15); BUN 17 mg/dL (7-18); BUN/Creat Ratio 15.9 RATIO (10-20); Calcium,Total 8.1 mg/dL (8.5-10.1); Chloride 105 mmol/L (98-107); Creatinine, Serum 1.07 mg/dL (0.70-1.30); EST Glomerular Filtration Rate 74 mL/min (>60); Est Glom Filt Rate - Afr Amer 89 mL/min (>60); Globulin 3.1 g/dL (2.2-4.2); Glucose 218 mg/dL (74-106); Potassium 3.9 mmol/L (3.5-5.1); Protein, Total 6.6 g/dL (6.4-8.2); Sodium Level 139 mmol/L (136-145); Thyroid Stim Hormone (TSH) 0.95 uIU/mL (0.358-3.74)
== END ==
PROVIDERS: PCP Family Medicine Geriatric Medicine; Visit Provider Family Medicine Geriatric Medicine
DX: E11.9 Type 2 diabetes mellitus without complications (principal); F52.8 Other sexual dysfunction not due to a substance or known physiological condition; I10 Essential (primary) hypertension; Z12.5 Encounter for screening for malignant neoplasm of prostate
CPT/HCPCS: 36415; 80053; 84153; 84403; 84443; 85025; G0103

== ENCOUNTER 2021-03-04 15:30 | Outpatient (CLI) | payer MEDICARE, OTHER, SELFPAY ==
[2021-03-04 16:46] LABS: Absolute Lymphocyte Count 2.37 X10^3/uL (0.83-4.51); Absolute Neutrophil Count 5.9 X10^3/uL (2.0-7.7); Basophil# 0.08 X10^3/uL; Basophil% 0.8 % (0-1); Eosinophil# 0.65 X10^3/uL; Eosinophils% 6.8 % (0-5); Hematocrit 39.7 % (40-54); Hemoglobin 12.9 g/dL (13.0-16.5); Lymphocyte # 2.37 X10^3/ul (0.83-4.51); Lymphocyte % 24.7 % (19-41); Mean Corp Hgb Conc 32.5 g/dL (32-36); Mean Corpuscular Hgb 29.7 pg (27.0-32.0); Mean Corpuscular Volume 91.5 fL (80-94); Monocyte# 0.52 X10^3/uL; Monocyte% 5.4 % (0-10); NRBC Flagged by Analyzer 0 % (0-5); Neutrophil # 5.94 X10^3/uL (2.7-7.7); Platelet Count 245 K/mm3 (150-450); RBC Distribution Width CV 14.2 % (11.6-14.6); RBC Distribution Width SD 47.7 fl (35.1-43.9); Red Blood Count 4.34 M/mm3 (4.6-6.2); White Blood Count 9.6 K/mm3 (4.4-11.0)
[2021-03-04 17:28] LABS: AST(SGOT) 36 U/L (15-37); Alanine Aminotransfer ALT/SGPT 61 U/L (16-61); Albumin, Serum 3.7 g/dL (3.2-5.0); Alkaline Phosphatase 103 U/L (45-117); Anion Gap 5 (5-15); BUN 16 mg/dL (7-18); Calcium,Total 8.7 mg/dL (8.5-10.1); Chloride 105 mmol/L (98-107); Creatinine, Serum 0.89 mg/dL (0.70-1.30); EST Glomerular Filtration Rate 91 mL/min (>60); Est Glom Filt Rate - Afr Amer 110 mL/min (>60); Globulin 3.6 g/dL (2.2-4.2); Glucose 108 mg/dL (74-106); Potassium 3.8 mmol/L (3.5-5.1); Protein, Total 7.3 g/dL (6.4-8.2); Sodium Level 138 mmol/L (136-145)
== END 2021-03-04 23:59 | disposition short-term general hospital (02) ==
LOC: POLAB3 15:32
PROVIDERS: PCP Family Medicine Geriatric Medicine; Visit Provider Family Medicine Geriatric Medicine
DX: E11.9 Type 2 diabetes mellitus without complications (principal); F52.8 Other sexual dysfunction not due to a substance or known physiological condition; I10 Essential (primary) hypertension
CPT/HCPCS: 36415; 80053; 84403; 84443; 85025

== ENCOUNTER → 2021-06-20 | Outpatient (CLI) | payer MEDICARE, SELFPAY ==
[2021-06-20 17:26] LABS: Anion Gap 6 (5-15); BUN 22 mg/dL (7-18); BUN/Creat Ratio 20.2 RATIO (10-20); Calcium,Total 8.8 mg/dL (8.5-10.1); Chloride 105 mmol/L (98-107); Creatinine, Serum 1.09 mg/dL (0.70-1.30); EST Glomerular Filtration Rate 72 mL/min (>60); Est Glom Filt Rate - Afr Amer 87 mL/min (>60); Glucose 176 mg/dL (74-106); Potassium 4.4 mmol/L (3.5-5.1); Sodium Level 135 mmol/L (136-145); Uric Acid 3.5 mg/dL (3.5-7.2)
[2021-06-20 17:50] LABS: Absolute Lymphocyte Count 2.21 X10^3/uL (0.83-4.51); Absolute Neutrophil Count 7.8 X10^3/uL (2.0-7.7); Basophil# 0.07 X10^3/uL; Basophil% 0.6 % (0-1); Eosinophil# 0.14 X10^3/uL; Eosinophils% 1.3 % (0-5); Hematocrit 33.3 % (40-54); Lymphocyte # 2.21 X10^3/ul (0.83-4.51); Lymphocyte % 19.8 % (19-41); Mean Corpuscular Hgb 31.4 pg (27.0-32.0); Mean Corpuscular Volume 95.1 fL (80-94); Mean Platelet Vol. 9.6 fl (6.2-12.0); Monocyte# 0.84 X10^3/uL; Monocyte% 7.5 % (0-10); NRBC Flagged by Analyzer 0 % (0-5); Neutrophil # 7.79 X10^3/uL (2.7-7.7); Neutrophil % 69.6 % (47-70); Platelet Count 293 K/mm3 (150-450); RBC Distribution Width CV 13.9 % (11.6-14.6); RBC Distribution Width SD 47.7 fl (35.1-43.9); White Blood Count 11.2 K/mm3 (4.4-11.0)
[2021-06-20 17:57] LABS: Erythrocyte Sedimentation Rate 14 mm/hr (0-20)
== END | disposition home or self-care (01) ==
LOC: POLAB3 16:40
PROVIDERS: PCP Family Medicine Geriatric Medicine; Visit Provider Family Medicine Geriatric Medicine
DX: M10.9 Gout, unspecified (principal); M25.529 Pain in unspecified elbow
CPT/HCPCS: 36415; 80048; 84550; 85025; 85652; 86140; 87070; 87075; 87077; 87186; 87205

== ENCOUNTER → 2022-02-17 | Outpatient (CLI) | payer MEDICARE, OTHER, SELFPAY ==
[2022-02-17 17:51] LABS: Absolute Lymphocyte Count 2.97 X10^3/uL (0.83-4.51); Absolute Neutrophil Count 5.5 X10^3/uL (2.0-7.7); Basophil% 1.1 % (0-1); Eosinophil# 0.33 X10^3/uL; Eosinophils% 3.5 % (0-5); Hematocrit 36.9 % (40-54); Hemoglobin 11.8 g/dL (13.0-16.5); Lymphocyte # 2.97 X10^3/ul (0.83-4.51); Lymphocyte % 31.3 % (19-41); Mean Corpuscular Hgb 30.4 pg (27.0-32.0); Mean Corpuscular Volume 95.1 fL (80-94); Mean Platelet Vol. 10.3 fl (6.2-12.0); Monocyte# 0.59 X10^3/uL; Monocyte% 6.2 % (0-10); NRBC Flagged by Analyzer 0 % (0-5); Neutrophil # 5.47 X10^3/uL (2.7-7.7); Neutrophil % 57.5 % (47-70); Platelet Count 262 K/mm3 (150-450); RBC Distribution Width SD 52.2 fl (35.1-43.9); Red Blood Count 3.88 M/mm3 (4.6-6.2); White Blood Count 9.5 K/mm3 (4.4-11.0)
[2022-02-17 18:13] LABS: ALB/GLOB Ratio 1.3 RATIO (0.9-2.4); AST(SGOT) 28 U/L (15-37); Alanine Aminotransfer ALT/SGPT 43 U/L (16-61); Albumin, Serum 3.8 g/dL (3.2-5.0); Alkaline Phosphatase 139 U/L (45-117); Anion Gap 8 (5-15); BUN 15 mg/dL (7-18); BUN/Creat Ratio 17.5 RATIO (10-20); Calcium,Total 8.6 mg/dL (8.5-10.1); Chloride 106 mmol/L (98-107); Creatinine, Serum 0.86 mg/dL (0.70-1.30); EST Glomerular Filtration Rate 95 mL/min (>60); Est Glom Filt Rate - Afr Amer 115 mL/min (>60); Glucose 168 mg/dL (74-106); Potassium 4.2 mmol/L (3.5-5.1); Protein, Total 6.8 g/dL (6.4-8.2); Sodium Level 140 mmol/L (136-145); Vitamin D,25 Hydroxy 20.6 ng/mL
== END | disposition home or self-care (01) ==
LOC: POLAB3 14:31
PROVIDERS: PCP Family Medicine Geriatric Medicine; Visit Provider Family Medicine Geriatric Medicine
DX: E11.9 Type 2 diabetes mellitus without complications (principal); I10 Essential (primary) hypertension; E55.9 Vitamin D deficiency, unspecified
CPT/HCPCS: 36415; 80053; 82306; 84443; 85025

== ENCOUNTER → 2023-02-23 | Outpatient (CLI) | payer MEDICARE, OTHER, SELFPAY ==
--- OUTSIDE RECORDS SUMMARY | 2023-02-23 09:42 | XMS RPT_ITS | CCD ---
Author Name Unknown Address [address] [place] [address] Organization [facility] Care Team Providers Care Driver Name Role Phone Jax Lakhani Primary Care Provider AARON MEJIA Attending Unava ilSTEVEN Peoples [facility] Unavailable Kar MARIE, Steven Mack Primary Care Provider [phone] Jax Lakhani Unavailable Steven Lakhani Chi Primary Care Provider [phone] Allergies Allergy Classification Reported Allergen(s) Allergy Type Date of Onset Reaction(s) Facility (1 source) Wheat gluten extract Drug Allergy 09-14-2018 [facility] Medications Current Medications Medication Drug Class(es) Dates Sig (Normalized) Sig (Original) benoxinate hydrochloride 4 mg/ml / fluorescein sodium 2.5 mg/ml ophthalmic solution (1 source) Diagnostic Dye Start: 03-03-2022 End: 03-04-2022 fluorescein-benoxi marylou 0.25-0.4 % 1 Drop (FLURESS) Continuous Blood Gluc National Opelint Analyst (FREESTYLE CANELO 14 DAY READER) Device (1 source) Start: 06-17-2018 Continuous Blood Gluc National Opelint Analyst (FREESTYLE CANELO 14 DAY READER) Device Continuous Blood Gluc Sensor (FREESTYLE CANELO 14 DAY SENSOR) Misc (1 source) Start: 08-14-2018 Continuous Blood Gluc Sensor (FREESTYLE CANELO 14 DAY SENSOR) Misc As directed. 11 08/14/2018 Active phenylephrine hydrochloride 25 mg/ml ophthalmic solution (1 source) alpha-1 Adrenergic Agonist Start: 03-03-2022 End: 03-04-2022 PHENYLephrine 2.5 % 1 Drop (AK-DILATE, YANET-SYNEPHRINE) proparacaine hydrochloride 5 mg/ml ophthalmic solution (1 source) Local Anesthetic Start: 03-03-2022 End: 03-04-2022 proparacaine 0.5 % 1 Drop (ALCAINE) tropicamide 10 mg/ml ophthalmic solution (1 source) Anticholinergic Start: 03-03-2022 End: 03-04-2022 tropicamide 1 % 1 Drop (MYDRIACYL) Completed/Discontinued Medications Medication Drug Class(es) Dates Sig (Normalized) Sig (Original) albuterol 0.83 mg/ml inhalation solution (16 sources) beta2-Adrenergic Agonist Start: 09-02-2014 albuterol (PROVENTIL) 2.5 mg /3 mL (0.083 %) nebulizer solution Use 2.5 mg via nebulizer as needed. 0 09/02/2014 Active Problems Active Problems Problem Classification Problem Date Documented Da te Episodic/Chronic Asthma (5 sources) Asthma; Translations: [Asthma, unspecified type, unspecified] Chronic Cataract (4 sources) Nuclear sclerosis; Translations: [Age-related nuclear cataract, bilateral] Onset: 7 Chronic Chronic obstructive pulmonary disease and bronchiectasis (1 source) Mild chronic obstructive pulmonary disease; Translations: [Chronic airway obstruction, not elsewhere classified] Chronic Diabetes mellitus with complications (7 sources) Hyperglycemia due to type 1 diabetes mellitus; Translations: [Type 2 diabetes mellitus] Onset: 5 08-11-2018 Chronic Diabetes mellitus without complication (10 sources) Type 1 diabetes mellitus without complication; Translations: [Type 2 diabetes mellitus] Onset: 5 09-14-2018 Chronic Disorders of lipid metabolism (5 sources) Hyperlipidemia; Translations: [Other and unspecified hyperlipidemia] Chronic Essential hypertension (7 sources) Hypertensive disorder; Translations: [Unspecified essential hypertension] Onset: 7 Chronic Nutritional deficiencies (5 sources) Cobalamin deficiency; Translations: [Other B-complex deficiencies] Episodic Other eye disorders (1 source) Bilateral vitreous floaters; Translations: [Other vitreous opacities, bilateral] Onset: 5 09-11-2014 Chronic Other gastrointestinal disorders (5 sources) H/O: gastrointestinal disease; Translations: [Personal history of other diseases of digestive system] Episodic Other lower respiratory disease (5 sources) Hypoxemia; Translations: [Hypoxemia] Episodic Other lower respiratory disease (5 sources) Dyspnea on exertion; Translations: [Other respiratory abnormalities] Episodic Other male genital disorders (5 sources) Male erectile dysfunction, unspecified; Translations: [Erectile dysfunction] Chronic Retinal detachments; defects; vascular occlusion; and retinopathy (2 sources) Bilateral epiretinal membrane of eyes; Translations: [Puckering of macula, bilateral] Onset: 1 Chronic Thyroid disorders (7 sources) Hypothyroidism; Translations: [Unspecified acquired hypothyroidism] Onset: 9 09-14-2018 Chronic Past or Other Problems Problem Classification Problem Date Documented Da te Episodic/Chronic Blindness and vision defects (1 source) Subjective visual disturbance; Translations: [Unspecified subjective visual disturbances] Onset: 03-25-2016 03-25-2016 Episodic Results Test Name Value Interpretation Reference Range Facil ity Vital Signs Date Time Vital Sign Value Performing Clinician Faci lity 09-05-2021 08:06-0400 Body height 180.34 cm [employer] Work Phone: [facility] 400 DO Work Phone: 09-05-2021 08:06-0400 Body mass index (BMI) [Ratio] 28.54 kg/m2 [employer] Work Phone: [facility] 400 DO Work Phone: 09-05-2021 08:06-0400 Body surface area Derived from formula 2.13 m2 [employer] Work Phone: [facility] 400 DO Work Phone: 09-05-2021 08:06-0400 Body temperature 97.7 [degF] [employer] Work Phone: [facility] 400 DO Work Phone: 09-05-2021 08:06-0400 Body weight 92.81 kg [employer] Work Phone: [facility] 400 DO Work Phone: 09-05-2021 08:06-0400 Diastolic blood pressure 72 mm[Hg] [employer] Work Phone: [facility] 400 DO Work Phone: 09-05-2021 08:06-0400 Heart rate 78 /min Steven-Chi Kar Work Phone: [facility] 400 DO Work Phone: 09-05-2021 08:06-0400 SaO2% (BldA) [Mass fraction] 95 % Steven-Chi Kar Work Phone: [facility] 400 DO Work Phone: 09-05-2021 08:06-0400 Systolic blood pressure 132 mm[Hg] Steven-Chi Kar Work Phone: [facility] 400 DO Work Phone: 08-16-2021 08:12-0400 Body height 180.34 cm Steven-Chi Kar Work Phone: [facility] 400 DO Work Phone: 08-16-2021 08:12-0400 Body mass index (BMI) [Ratio] 28.45 kg/m2 Steven-Chi Kar Work Phone: [facility] 400 DO Work Phone: 08-16-2021 08:12-0400 Body surface area Derived from formula 2.13 m2 Steven-Chi Kar Work Phone: [facility] 400 DO Work Phone: 08-16-2021 08:12-0400 Body temperature 98.7 [degF] Steven-Chi Kar Work Phone: [facility] 400 DO Work Phone: 08-16-2021 08:12-0400 Body weight 92.53 kg Steven-Chi Kar Work Phone: [facility] 400 DO Work Phone: 08-16-2021 08:12-0400 Diastolic blood pressure 80 mm[Hg] Steven-Chi Kar Work Phone: [facility] 400 DO Work Phone: 08-16-2021 08:12-0400 Heart rate 84 /min Steven-Chi Kar Work Phone: [facility] 400 DO Work Phone: 08-16-2021 08:12-0400 SaO2% (BldA) [Mass fraction] 96 % Steven-Chi Kar Work Phone: [facility] [place] [address] DO Work Phone: 08-16-2021 08:12-0400 Systolic blood pressure 146 mm[Hg] Steven-Chi Kar Work Phone: [facility] [place] [address] DO Work Phone: 09-14-2018 08:14-0400 BMI (Body Mass Index) 27.4 kg/m2 [place] [employer] [facility] 09-14-2018 08:14-0400 Body weight 89.09 kg Ramez [employer] [facility] 09-14-2018 08:14-0400 BP Diastolic 72 mm[Hg] Ramez [employer] 09-14-2018 08:14-0400 BP Systolic 143 mm[Hg] Ramez [employer] [facility] 09-14-2018 08:14-0400 Height 180.3 cm Ramez [employer] 09-14-2018 08:14-0400 Pulse (Heart Rate) 76 /min Ramez [employer] [facility] 08-11-2018 09:00-0400 BMI (Body Mass Index) 29.18 kg/m2 Ramez [employer] [facility] 08-11-2018 09:00-0400 Body weight 94.89 kg Ramez [employer] 08-11-2018 09:00-0400 BP Diastolic 82 mm[Hg] Ramez [employer] 08-11-2018 09:00-0400 BP Systolic 141 mm[Hg] Ramez [employer] 08-11-2018 09:00-0400 Height 180.3 cm Ramez [employer] 08-11-2018 09:00-0400 Pulse (Heart Rate) 72 /min [facility] En[facility] Encounter Date Encounter Type Care Provider Facility Start: 03-03-2022 End: 03-03-2022 Patient encounter procedure Dick Ace MD Work Phone: Ophthalmology Procedures Date Procedure Procedure Detail Performing Clinician Start: 03-03-2022 Fundus photography w/interpretation & report Dick Ace MD Work Phone: Start: 08-11-2018 DEVICE EVALUATION Histo rical Provider No history of surgery Cher Lakhani Work Phone: Plan of Treatment Date Care Activity Detail Author Start: 03-03-2023 Hepatitis C antibody, confirmatory test DILATED RETINAL EXAM [facility] Start: 02-09-2022 ADVANCE DIRECTIVE DISCUSSION ADVANCE DIRECTIVE DISCUSSION [facility] Start: 02-09-2022 DEPRESSION ASSESSMENT DEPRESSION ASSESSMENT [facility] Start: 10-10-2021 Influenza vaccination INFLUENZA (#1) [facility] Start: 09-05-2021 FUV, Provider: Tod Christie, Status: Pen, Time: 8:00 AM FUV, Provider: Tod Christie, Status: Pen, Time: 8:00 AM -Pulmonary [facility] 400 DO Work Phone: Start: 08-29-2021 PFT, Provider: [facility],[id number], Status: Pen, Time: 10:00 AM PFT, Provider: [facility],[id number], Status: Pen, Time: 10:00 AM [facility] 400 DO Work Phone: Start: 10-10-2018 Influenza vaccination INFLUENZA VACCINE (#1) [facility] Start: 09-14-2018 End: 09-14-2018 Office Visit 09/14/2018 Office Visit Endocrinology, Diabetes & Metabolism Ramez Castillo MD [address] [place] [address] [phone] [facility] Endocrinology Start: 08-11-2018 End: 08-12-2019 C-PEPTIDE C-PEPTIDE Lab Routine Type 1 diabetes mellitus without complication Expected: 08/11/2018 (Approximate), Expires: 08/12/2019 [facility] Immunizations Immunization Date Immunization Notes Care Provider Chung zimmerman 01-30-2020 influenza virus vaccine, unspecified formulation Jax Lakhani Work Phone: [facility] [address] DO Work Phone: Payers Date Payer Category Payer Private Health Insurance [id number] 2020 Medicare [id number] 2020 Private Health Insurance [id number] 2018 Unknown [facility] xxxxxxxxxx 2018-Present xxxxxxxxxx [id number] 1955 Unknown [id number] Unknown Social History Date Type Detail Facility Tobacco smoking status [facility] Unknown if ever smoked [facility] Start: 1955 Sex Assigned At Not on file O [facility] Start: 09-11-2014 End: 08-11-2018 Tobacco smoking status NHIS Never smoker [facility] Start: 08-11-2018 Alcohol Comment rarely [facility] Tobacco smoking status [facility] Tobacco smoking consumption unknown [facility] Work Phone: Never smoker Never smoker [facility] 400 DO Work Phone: Start: 09-11-2014 Tobacco use and exposure Smokeless tobacco non-user [facility] Start: 03-03-2022 Alcohol intake Current non-dr hand zipper trimmer of alcohol (finding) [facility] Instructions 03-03-2022 Patient Instructions Note Date & Type Note Facility 03-03-2022 Instructions Dick Ace MD - 03/03/2022 4:18 PM EST Please keep your blood sugar under good control to minimize risk of ocular complications from diabetes. If you have any questions please contact our office at [phone]. After office hours or on the weekend, please call Dr. Ace on his cell phone at [phone]. documented in this encounter [facility] History of Present illness Narrative 03-03-2022 Dick Ace MD - 03/03/2022 4:15 PM EST Note Date & Type Note Facility 03-03-2022 History of Presen t illness Narrative ASSESSMENT/PLAN: 1. Epiretinal membrane (ERM) of both eyes - ICD9: 362.56, ICD10: H35.373 (primary diagnosis) - Stable / Observe - Monitor with Amsler Grid 2. Type 2 diabetes mellitus with right eye affected by mild nonproliferative retinopathy without macular edema, without long-term current use of insulin (HCC) - ICD9: 250.50, 362.04, ICD10: E11.3291 - Please keep your blood sugar under good control to minimize risk of ocular complications from diabetes. 3. Nuclear sclerosis of both eyes - ICD9: 366.16, ICD10: H25.13 - Not visually significant at this time - Continue to monitor for any progression - Consult Dr. Morrison for refraction and glasses 4. Essential hypertension - ICD9: 401.9, ICD10: I10 - Manage care with primary care physician Return to clinic in 1 year for Dilated fundus exam I have confirmed and edited as necessary the relevant ophthalmic history, review of systems, surgical history, and ophthalmological examination findings as obtained by the ophthalmic technical staff. I have seen and examined Carline Campbell. I have discussed the examination findings, diagnosis, and treatment options with Carline Campbell and/or his family. I have also reviewed and agree with the assessment and plan as stated above and agree with all its relevant components. I gave the patient the opportunity to ask questions about the findings, diagnosis, and treatment options. Dick Ace MD documented in this encounter [facility] History of Present illness Narrative 08-29-2021 Note Date & Type Note Facility 08-29-2021 History of Present illness Narrative Patient was seen today in the office to review his chest x-ray and test results. Chest x-ray from 08/29/2021 appears to be clear. His pulmonary function study shows only some small airway obstructive disease. His laboratory work shows that he is anemic and as he reminded me he is on treatment for pernicious anemia and he also had an elevated white blood cell count and I am not clear as to whether this is related to the steroid injections that he gets every few months. From what he tells me it appears that he is not on any bronchodilator therapy at this time. He has used Trelegy 200 in the past when he got samples from his family physician. I did tell him that in view of the mild obstructive airway changes that it would be probably better for him to be 90 less potent bronchodilator therapy and potentially 1 that would be easier for him to afford when he is not able to get samples. I had suggested Symbicort or Dulera.He currently denies any cough or sputum production and has not had any wheezing. He does have some shortness of breath on occasion when walking a longer distance. Additionally his FeNO was normal. He did okay on his SST and was able to walk 1400 feet in 6 minutes with a normal of 1800. His oxygen saturations remained greater than 90% on that study. -[facility] [address] DO Work Phone: History of Present illness Narrative 07-24-2021 Ivana Campbell CNP - 07/24/2021 2:56 PM EDTCoswaldo Campbell CNP - 07/24/2021 2:55 PM EDT Note Date & Type Note Facility 07-24-2021 History of Presen t illness Narrative Opened in error Opened in error documented in this encounter [facility] Progress note 02-26-2021 Note Date & Type Note Facility 02-26-2021 Note HNO ID: [id number] Author: Dick Ace MD Service: ? Author Type: Physician Type: Progress Notes Filed: 02/26/2021 4:26 PM Note Text: ASSESSMENT/PLAN: 1. Type 2 diabetes mellitus with both eyes affected by mild nonproliferative retinopathy without macular edema, with long-term current use of insulin (HCC) - ICD9: 250.50, 362.04, V58.67, ICD10: E11.3293, Z79.4 (primary diagnosis) Please keep your blood sugar under good control to minimize risk of ocular complications from diabetes. Continue to monitor with primary care physician. 2. Epiretinal membrane (ERM) of both eyes - ICD9: 362.56, ICD10: H35.373 - FUNDUS PHOTOS OU (BOTH EYES) - OCT MACULA CIRRUS OU (BOTH EYES) Monitor for progression Both Eyes. 3. Combined forms of age-related cataract of both eyes - ICD9: 366.19, ICD10: H25.813 Not visually significant Both Eyes. 4. Essential hypertension - ICD9: 401.9, ICD10: I10 Continue to monitor with primary care physician. Dick Ace MD I have confirmed and edited as necessary the relevant ophthalmic history, review of systems, surgical history, and ophthalmological examination findings as obtained by the ophthalmic technical staff. I have seen and examined Carline Campbell. I have discussed the examination findings, diagnosis, and treatment options with Carline Campbell and/or his family. I have also reviewed and agree with the assessment and plan as stated above and agree with all its relevant components. I gave the patient the opportunity to ask questions about the findings, diagnosis, and treatment options. [facility] Chief complaint Narrative - Reported Note Date & Type Note Facility Chief complaint Narrative - Reported CARLINE CAMPBELL is here for an initial evaluation.Reason for Visit: Asthma.Appointment requested by: Dr. Jax Lakhani. [facility] [place] [address] DO Work Phone: Chief complaint Narrative - Reported Note Date & Type Note Facility Chief complaint Narrative - Reported CARLINE CAMPBELL is here for an initial evaluation.Reason for Visit: Asthma.Appointment requested by: Dr. Jax Lakhani. [place] [address] DO Work Phone: Evaluation note Note Date & Type Note Facility documented in this encounter [facility] History of Present illness Narrative Note Date & Type Note Facility History of Present illness Narrative This is a 66-year-old male who reports being diagnosed with asthma when he was 40 years old. He reports that uses oxygen at nighttime only and no oxygen during the day he owns his own oxygen concentrator. He reports that he is given steroid injections about every 3 months when his oxygen saturation is at 90% or below. He has never been hospitalized for his breathing he denies any recent chest x-ray no pulmonary function testing recently no history of pneumonia or trauma to the chest. Reports on average day he has some shortness of breath. He is on Trelegy 200 that he uses samples from his family physician he also occasionally uses other inhalers if those are not available.History of hypertension. He also has nebulized albuterol treatments that he will occasionally use. He denies any past surgical history. Family history mother is living at 92 years old with some shortness of breath. Father from stomach cancer and his brother also has a history of shortness of breath none of these were smokers. 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 He is to a current smoker. Patient sleep history was unremarkable. Peak flow today was 410 L/min with an oxygen saturation of 96%. Peak flow would be approximately 550 based on his height and age. -[facility] [address] [employer] Work Phone: History of Present illness Narrative Note Date & Type Note Facility History of Present illness Narrative This is a 66-year-old male who reports being diagnosed with asthma when he was 40 years old. He reports that uses oxygen at nighttime only and no oxygen during the day he owns his own oxygen concentrator. He reports that he is given steroid injections about every 3 months when his oxygen saturation is at 90% or below. He has never been hospitalized for his breathing he denies any recent chest x-ray no pulmonary function testing recently no history of pneumonia or trauma to the chest. Reports on average day he has some shortness of breath. He is on Trelegy 200 that he uses samples from his family physician he also occasionally uses other inhalers if those are not available.History of hypertension. He also has nebulized albuterol treatments that he will occasionally use. He denies any past surgical history. Family history mother is living at 92 years old with some shortness of breath. Father from stomach cancer and his brother also has a history of shortness of breath none of these were smokers. 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 He is to a current smoker. Patient sleep history was unremarkable. Peak flow today was 410 L/min with an oxygen saturation of 96%. Peak flow would be approximately 550 based on his height and age. [facility] [address] DO Work Phone: History of Present Illness * Ramez Castillo MD - 08/11/2018 9:15 AM EDT History of Present Illness Type 1 diabetes: This is his first visit to the office. He was diagnosed with diabetes in his 20s. Currently taking NPH and R, he has a Canelo device and is making constant adjustments to his shoulders. Blood sugars are highly variable, it does appear he has hypoglycemic unawareness with blood sugars as low as 40 mg/dL, asymptomatic. Denies neuropathic discomfort of the lower extremity. Last ophthalmology appointment one year ago, no retinopathy. Review of Systems Vitals: Blood pressure 141/82, pulse 72, height 1.803 m (5' 11 ), weight 94.9 kg (209 lb 3.2 oz). [...] lab results and to go over logbook and Canelo download. * Sherrell Sanchez - 08/11/2018 9:15 AM EDT Nurse Note: [...] Nursing Assessment: Physical Exam documented in this encounter* Ramez Castillo MD - 09/14/2018 8:15 AM EDT History of Present Illness Type 1 diabetes: This is his second visit to the office. He is seen today in the presence of his daughter, who is taking notes for him. He was diagnosed with diabetes in his 20s. Currently taking NPHand R, he has a Canelo device and is making constant adjustments to his sugars. He is essentially takingbetween 10 15 units of R the high stress day, 5 units of R meals on low stress days, and barely ever using NPH, occasionally 5, no more then 10 units at bedtime. Blood sugars are highly variable, it does appear he has hypoglycemic unawareness with blood sugars as low as 40 mg/dL, asymptomatic. Denies neuropathic discomfort of the lower extremity. Last ophthalmology appointment one year ago, noretinopathy. We sent him for blood work demonstrating hemoglobin A1c = 6.8%, with blood sugars varying between 40 400 mg/dL. C-peptide undetectable for concurrent blood glucose of 117 mg/dL. Hypothyroidism: He is taking Synthroid brand 200 g daily, TSH = 1.7. Review of Systems Vitals: Blood pressure 143/72, pulse 76, height 1.803 m (5' 10.98 ), weight 89.1 kg (196 lb 6.4 oz). Physical Exam Constitutional: He is oriented [...] time. Assessment and Plan Type 1 diabetes: He is interested in a hybrid insulin pump. We will research this possibility for him. Of hybrid pump is not available, he is interested in Omni. After that, insulin pens. We discussed his hypoglycemic unawareness. He is testing blood sugars very frequently with his Canelo device. * Anne Marie Baker - 09/14/2018 8:15 AM EDT Nurse Note: Review of Systems Constitutional: Negative for fatigue, fever and unexpected weight change. Respiratory: Negative for shortness of breath. Cardiovascular: Negative for chest pain and leg swelling. Gastrointestinal: Negative for constipation, diarrhea, nausea and vomiting. Endocrine: Negative for polydipsia and polyuria. Neurological: Negative for weakness and numbness. Psychiatric/Behavioral: Negative for sleep disturbance. Nursing Assessment: Physical Exam Patient concerned about a lump under left arm. Wonders if it may be lymph nodes. Sugars are not normal D/T stress at home. documented in this encounter Assessments Diagnosis Type 1 diabetes mellitus without complication- Primary Type I (juvenile type) diabetes mellitus without mention of complication, not stated as uncontrolled Type 1 diabetes mellitus with hyperglycemia Type I (juvenile type) diabetes mellitus without mention of complication, not stated as uncontrolled Diagnosis Type 1 diabetes mellitus without complication- Primary Type I (juvenile type) diabetes mellitus without mention of complication, not stated as uncontrolled Other specified hypothyroidism Summary Purpose Family History Unknown Family Member Name Dates Details No pertinent family history: Mother, Father(V49.89, Z78.9) Status:Active Unknown Family Member Name Dates Details No pertinent family history: Mother, Father(V49.89, Z78.9) Status:Active Unknown Family Member Name Dates Details No pertinent family history: Mother, Father(V49.89, Z78.9) Status:Active Unknown Family Member Name Dates Details No pertinent family history: Mother, Father(V49.89, Z78.9) Status:Active Unknown Family Member Name Dates Details No pertinent family history: Mother, Father(V49.89, Z78.9) Status:Active Advance Directives No Advanced Directives Records FoundNo Advanced Directives Records FoundNo Advanced Directives Records FoundNo Advanced Directives Records FoundNo Advanced Directives Records Found Chief Complaint * CARLINE CAMPBELL is here for a follow-up visit. * Reason for Visit: Lab, CXR, PFT, FENO, SST. * Appointment requested by: Hiral Lakhani. Medications Administered Section Active Administered Medications - up to 3 most recent administrations Medication Order MAR Action Action Date Dose Rate Site fluorescein-benoxinate 0.25-0.4 % 1 Drop (FLURESS) 1 Drop, BOTH EYES, DIRECTED, Starting on Thu03/03/22 at 1600, Until Thu03/04/22 at 0359, Administer for applanation tonometry. In the event of a Fluress shortage, administer Jodee-Fluor 1 drop into both eyes as directed for applanation tonometry Given 03/03/2022 3:35 PM EST 1 Drop PHENYLephrine 2.5 % 1 Drop (AK-DILATE, YANET-SYNEPHRINE) 1 Drop, BOTH EYES, DIRECTED, Starting on Thu03/03/22 at 1600, Until Thu03/04/22 at 0359, Administer for dilation PROTECT FROM LIGHT Given 03/03/2022 3:32 PM EST 1 Drop proparacaine 0.5 % 1 Drop (ALCAINE) 1 Drop, BOTH EYES, DIRECTED, Starting on Thu03/03/22 at 1600, Until Thu03/04/22 at 0359, Administer for pneumo tonometry, tonopen tonometry, or pachymetry. In the event of a proparacaine shortage, administer tetracaine 0.5% ophthalmic drops 1 drop in the left eye as directed for pneumo tonometry, tonopen tonometry, or pachymetry Given 03/03/2022 3:32 PM EST 1 Drop tropicamide 1 % 1 Drop (MYDRIACYL) 1 Drop, BOTH EYES, DIRECTED, Starting on 03/03/22 at 1600, Until Tu03/04/22 at 0359, Administer for dilation Given 03/03/2022 3:32 PM EST 1 Drop Additional Source Comments Reason for Visit (unrecogniz ed section and content) Reason Comments Type 1 Diabetes Reason Comments Diabetes Last HgbA1c on recor d was 6.8 Mild Nonproliferative Diabetic Retinopat hy Bilateral Epiretinal Membrane Follow Up Bilateral (unrecognized sect ion and content) No Status Records FoundNo Status Records FoundNo Status Records FoundNo Status Records FoundNo Status Records Found INFORMATION SOURCE (unrecogn ized section and content) DATE CREATED AUTHOR AUTHOR'S ORGANIZ ATION 07/11/2021 [facility] DATE CREATED AUTHOR AUTHOR'S ORGANIZ ATION 09/02/2021 [facility] DATE CREATED AUTHOR AUTHOR'S ORGANIZ ATION 09/08/2021 [facility] DATE CREATED AUTHOR AUTHOR'S ORGANIZ ATION 09/09/2021 [employer] (unrecognized sec tion and content) Driver Relationship Specialty Start Date End Date Kar Steven Mack PCP - General Family Medicine 12/17/09 Source Comments (unrecognize d section and content) In the event this informatio n is protected by the Federal Confidentiality of Alcohol and Drug Abuse Patient Records regulations: The Federal rules restrict any use of the information to criminally investigate or prosecute any alcohol or drug abuse patient.[facility] FOR RECORDS PERTAINING TO PATIENTS WHO ARE OR HAVE BEEN ENROLLED IN A CHEMICAL DEPENDENCY/SUBSTANCEABUSE PROGRAM, SOME INFORMATION MAY BE OMITTED. This clinical summary was aggregated from multiple sources. Caution should be exercised in using it in the provision of clinical care. This summary normalizes information from multiple sources, and as a consequence, information in this document may materially change the coding, format and clinical context of patient data. In addition, data may be omitted in some cases. CLINICAL DECISIONS SHOULD BE BASED ON THE PRIMARY CLINICAL RECORDS. [facility]. provides no warranty or guarantee of the accuracy or completeness of information in this document.
[2023-02-23 09:58] LABS: Absolute Lymphocyte Count 3.31 X10^3/uL (0.83-4.51); Absolute Neutrophil Count 7.1 X10^3/uL (2.0-7.7); Basophil# 0.07 X10^3/uL; Basophil% 0.6 % (0-1); Eosinophil# 0.21 X10^3/uL; Eosinophils% 1.8 % (0-5); Hematocrit 39.9 % (40-54); Lymphocyte # 3.31 X10^3/ul (0.83-4.51); Lymphocyte % 28.8 % (19-41); Mean Corp Hgb Conc 32.6 g/dL (32-36); Mean Corpuscular Volume 95.2 fL (80-94); Mean Platelet Vol. 9.5 fl (6.2-12.0); Monocyte# 0.71 X10^3/uL; Monocyte% 6.2 % (0-10); NRBC Flagged by Analyzer 0 % (0-5); Neutrophil # 7.13 X10^3/uL (2.7-7.7); Neutrophil % 62.1 % (47-70); Platelet Count 253 K/mm3 (150-450); RBC Distribution Width CV 13.8 % (11.6-14.6); RBC Distribution Width SD 48.5 fl (35.1-43.9); Red Blood Count 4.19 M/mm3 (4.6-6.2); White Blood Count 11.5 K/mm3 (4.4-11.0)
[2023-02-23 10:11] LABS: Vitamin D,25 Hydroxy 20.4 ng/mL
[2023-02-23 12:16] LABS: ALB/GLOB Ratio 1.1 RATIO (0.9-2.4); AST(SGOT) 29 U/L (15-37); Alanine Aminotransfer ALT/SGPT 54 U/L (16-61); Albumin, Serum 3.5 g/dL (3.2-5.0); Alkaline Phosphatase 127 U/L (45-117); Anion Gap 6 (5-15); BUN 19 mg/dL (7-18); Calcium,Total 8.5 mg/dL (8.5-10.1); Chloride 107 mmol/L (98-107); Creatinine, Serum 1.12 mg/dL (0.70-1.30); EST Glomerular Filtration Rate 69 mL/min (>60); Est Glom Filt Rate - Afr Amer 84 mL/min (>60); Globulin 3.2 g/dL (2.2-4.2); Glucose 169 mg/dL (74-106); PSA,Total - Annual Screen 0.85 ng/mL (0.00-4.00); Potassium 4.4 mmol/L (3.5-5.1); Protein, Total 6.7 g/dL (6.4-8.2); Sodium Level 138 mmol/L (136-145)
== END | disposition home or self-care (01) ==
LOC: POLAB3 09:14
PROVIDERS: PCP Family Medicine Geriatric Medicine; Visit Provider Family Medicine Geriatric Medicine
DX: E11.65 Type 2 diabetes mellitus with hyperglycemia (principal); E55.9 Vitamin D deficiency, unspecified; I10 Essential (primary) hypertension; Z12.5 Encounter for screening for malignant neoplasm of prostate
CPT/HCPCS: 36415; 80053; 82306; 84153; 84443; 85025; G0103

== ENCOUNTER → 2024-02-26 | Outpatient (CLI) | payer MEDICARE, OTHER, SELFPAY ==
[2024-02-26 09:30] LABS: Absolute Lymphocyte Count 3.57 X10^3/uL (0.83-4.51); Absolute Neutrophil Count 6.5 X10^3/uL (2.0-7.7); Basophil# 0.09 X10^3/uL; Basophil% 0.8 % (0-1); Eosinophil# 0.27 X10^3/uL; Eosinophils% 2.5 % (0-5); Hematocrit 40.7 % (40-54); Hemoglobin 12.9 g/dL (13.0-16.5); Lymphocyte # 3.57 X10^3/ul (0.83-4.51); Lymphocyte % 32.5 % (19-41); Mean Corp Hgb Conc 31.7 g/dL (32-36); Mean Corpuscular Hgb 30.5 pg (27.0-32.0); Mean Corpuscular Volume 96.2 fL (80-94); Mean Platelet Vol. 9.5 fl (6.2-12.0); Monocyte# 0.52 X10^3/uL; Monocyte% 4.7 % (0-10); NRBC Flagged by Analyzer 0 % (0-5); Neutrophil # 6.51 X10^3/uL (2.7-7.7); Neutrophil % 59.1 % (47-70); Platelet Count 246 K/mm3 (150-450); RBC Distribution Width CV 13.9 % (11.6-14.6); RBC Distribution Width SD 49.1 fl (35.1-43.9); Red Blood Count 4.23 M/mm3 (4.6-6.2)
[2024-02-26 10:55] LABS: ALB/GLOB Ratio 1.1 RATIO (0.9-2.4); AST(SGOT) 21 U/L (15-37); Alanine Aminotransfer ALT/SGPT 32 U/L (16-61); Albumin, Serum 3.7 g/dL (3.2-5.0); Alkaline Phosphatase 128 U/L (45-117); Anion Gap 4 (5-15); BUN 21 mg/dL (7-18); BUN/Creat Ratio 18.6 RATIO (10-20); Calcium,Total 8.6 mg/dL (8.5-10.1); Chloride 103 mmol/L (98-107); Creatinine, Serum 1.13 mg/dL (0.70-1.30); EST Glomerular Filtration Rate 68 mL/min (>60); Est Glom Filt Rate - Afr Amer 83 mL/min (>60); Globulin 3.3 g/dL (2.2-4.2); Glucose 327 mg/dL (74-106); PSA,Total - Annual Screen 0.73 ng/mL (0.00-4.00); Potassium 4.8 mmol/L (3.5-5.1); Sodium Level 135 mmol/L (136-145)
== END | disposition home or self-care (01) ==
LOC: POLAB3 09:15
PROVIDERS: PCP Family Medicine Geriatric Medicine; Visit Provider Family Medicine Geriatric Medicine
DX: I10 Essential (primary) hypertension (principal); E11.65 Type 2 diabetes mellitus with hyperglycemia; E55.9 Vitamin D deficiency, unspecified; Z12.5 Encounter for screening for malignant neoplasm of prostate
CPT/HCPCS: 36415; 80053; 82306; 84153; 84443; 85025; G0103

== ENCOUNTER → 2024-11-15 | Outpatient (CLI) | payer MEDICARE, OTHER, SELFPAY ==
[2024-11-15 11:03] LABS: Mucous, Urine 0 SEEN /hpf (<or=2+); Red Blood Cells-Urine 0 SEEN /hpf (0-5); Squamous Epithelial Cells - UA 0 SEEN /hpf (0-5)
[2024-11-15 11:40] LABS: Hematocrit 40.0 % (40-54); Hemoglobin 12.9 g/dL (13.0-16.5); Immature Granulocytes Count 0.080 X10^3/uL (0.0-0.0); Mean Corp Hgb Conc 32.3 g/dL (32-36); Mean Corpuscular Volume 96.9 fL (80-94); Mean Platelet Vol. 10.4 fl (6.2-12.0); NRBC Flagged by Analyzer 0 % (0-5); Platelet Count 218 K/mm3 (150-450); RBC Distribution Width CV 14.1 % (11.6-14.6); RBC Distribution Width SD 50.1 fl (35.1-43.9); Red Blood Count 4.13 M/mm3 (4.6-6.2); White Blood Count 9.7 K/mm3 (4.4-11.0)
[2024-11-15 11:43] LABS: Color, Urine Yellow (Yellow); Glucose, Dipstick 100 mg/dl (Normal); Ketone-Dipstick 15 mg/dl (Negative); Leukocyte Esterase-Dipstick Negative /ul (Negative); Nitrite-Dipstick Negative (Negative); Occult Blood-Urine Negative /ul (Negative); Protein-Dipstick 15 mg/dl (Negative); Specific Gravity, Urine 1.020 (1.002-1.030); Urine Bilirubin Dipstick Negative (Negative)
[2024-11-15 13:29] LABS: AST(SGOT) 36 U/L (<=37); Alanine Aminotransfer ALT/SGPT 44 U/L (<=46); Albumin, Serum 4.2 g/dL (3.4-4.8); Alkaline Phosphatase 117 U/L (40-129); Anion Gap 10 (5-15); BUN 20 mg/dL (4-19); BUN/Creat Ratio 24.0 RATIO (10-20); Calcium,Total 8.5 mg/dL (7.6-11.0); Carbon Dioxide 22.4 mmol/L (21.0-32.0); Chloride 103 mmol/L (98-108); Free T3 2.1 pg/mL (2.18-3.98); Globulin 2.5 g/dL (2.2-4.2); Glucose 271 mg/dL (70-99); Potassium 5.1 mmol/L (3.3-5.1); T4 Total, Thyroxin 4.2 ug/dL (4.5-12.1); Vitamin B12 1318 pg/mL (180-914)
[2024-11-15 19:06] LABS: Xtra Tube Kwok EXTRA TUBE
== END | disposition home or self-care (01) ==
LOC: POLAB3 10:57
PROVIDERS: PCP Family Medicine Geriatric Medicine; Visit Provider Family Medicine Geriatric Medicine
DX: Z13.89 Encounter for screening for other disorder (principal); E11.65 Type 2 diabetes mellitus with hyperglycemia; I10 Essential (primary) hypertension; E03.9 Hypothyroidism, unspecified; J45.909 Unspecified asthma, uncomplicated
CPT/HCPCS: 36415; 80053; 81001; 82607; 83036; 84436; 84443; 84481; 85025

== ENCOUNTER → 2024-12-13 | Outpatient (CLI) | payer MEDICARE, OTHER, SELFPAY ==
--- NOTE | 2024-12-13 13:45 | CT_ITS ---
PROCEDURE: CT/CT Chest, Abd, Pel w/Contrast
== END | disposition home or self-care (01) ==
LOC: CT 13:44
PROVIDERS: PCP Family Medicine Geriatric Medicine; Referring Provider Family Medicine Geriatric Medicine; Visit Provider Family Medicine Geriatric Medicine
DX: R63.4 Abnormal weight loss (principal); J96.11 Chronic respiratory failure with hypoxia
CPT/HCPCS: 71260; 74177; Q9967